=== PATIENT | female | born 1990 | race Caucasian/White ===

== ENCOUNTER 2024-02-12 11:07 | Emergency (ER) | payer BC, SELFPAY ==
--- NOTE | 2024-02-12 11:11 | ED_ITS ---
HPI - URI/Sore Throat General Chief Complaint: Upper Respiratory Infection Stated Complaint: sore throat,ear pain, weak Time Seen by Provider: 02/12/24 11:49 Source: patient and RN notes reviewed Mode of arrival: ambulatory Limitations: no limitations History of Present Illness HPI Narrative: 34-year-old female presents to the [facility] with complaints of sore throat, ear pain, cough, fatigue and head congestion that started 3 days ago No treatment prior to arrival. 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 Related Data Allergies Allergy/AdvReac Type Severity Reaction Status Date / Time No Known Allergies Allergy Verified 02/12/24 12:10 Review of Systems Review of Systems: All systems reviewed & are unremarkable except as noted in HPI and below Constitutional: Constitutional: Reports no additional constitutional complaints ENT: Reports as per HPI Cardiovascular: Cardiovascular: Reports no additional cardiovascular complaints, Denies chest pain and Denies dyspnea Respiratory: Respiratory: Reports as per HPI, Denies chest congestion, Reports cough and Denies dyspnea Musculoskeletal: Musculoskeletal: Reports no additional musculoskeletal complaints Integumentary/Breasts: Skin/Breast: Reports system reviewed and no additional complaints, except as docu PMFSH Comments At the time of my signature, I reviewed and agree with the nursing past medical, surgical, social, and family history. There is no relevant family history pertinent to the patient complaint. Exam Const: General: cooperative, healthy appearing, comfortable, no acute distress, well developed, alert and well nourished Nutritional Appearance: well nourished Orientation/consciousness: patient oriented x3 Limitations: no limitations HENMT: Head: normal to inspection Ears: hearing grossly normal bilaterally, external ears normal, EAC's normal, mastoids normal, no periauricular adenopathy and TM abnormal erythematous on the left and with fluid behind the TM on the right; not bulging Mouth: Yes Normal oral and palatal mucosa present, Yes lip normal, Yes tongue normal and Yes moist mucous membranes Throat: posterior oropharynx normal, tonsils normal, uvula midline, postnasal drainage and no uvular edema Eyes: General: appearance normal, both eyes and all related structures Alignment and Position: alignment normal Neck: Neck: normal visual inspection, full ROM, no lymphadenopathy and no meningeal signs Chest: Chest palpation & inspection: normal inspection of the chest Resp: Effort & Inspection: normal respiratory effort and able to speak in complete sentences Auscultation: clear to auscultation bilaterally, no crackles, no rales, no rhonchi and no wheezes Cardio: Rate: regular rate Skin: General skin exam: normal color and no rashes or lesions noted Neuro: General: patient oriented x3, gait normal, moves all extremities and no meningeal signs Cognition (Neuro): normal cognition Speech: normal speech Gait exam (Neuro): Normal gait present Extrem: General: normal to inspection, full ROM, capillary refill normal and normal gait Psych: Appearance: grossly normal and well kempt Mental Status: mental status grossly normal Speech and movement: Normal speech and movement present and Clear speech present Affect: normal affect Attitude: cooperative Course Course Level of Care: Express Care Visit Vital Signs Vital signs: Vital Signs Temperature 98.2 F 02/12/24 11:30 Pulse Rate 78 02/12/24 11:30 Respiratory Rate 16 02/12/24 11:30 Blood Pressure 105/69 02/12/24 11:30 Pulse Oximetry 100 02/12/24 11:30 Oxygen Delivery Room Air 02/12/24 11:30 Temperature 98.2 F 02/12/24 11:30 Pulse Rate 78 02/12/24 11:30 Respiratory Rate 16 02/12/24 11:30 Blood Pressure 105/69 02/12/24 11:30 Pulse Oximetry 100 02/12/24 11:30 Oxygen Delivery Room Air 02/12/24 11:30 Reviewed MDM - URI/Sore Throat MDM Narrative Medical decision making narrative: For patient sitting comfortably in exam room. Nontoxic, vitals stable. Patient presents with 3 day history of URI symptoms. Erythema noted to left TM. Flu, COVID, strep were all negative in clinic. Patient appropriate for outpatient treatment and follow-up Discharge instructions reviewed with patient, as well as provided in writing per nursing staff. The instructions also include specific and strict return/GO TO THE ER as well as f/u information. All questions have been answered, and the patient deny any further questions with discharge and discharge plan. Some parts of this dictation were generated by voice recognition software and may contain typographical and/or grammatical inaccuracies. Differential Diagnosis Differential diagnosis: Likely upper respiratory infection, otitis media, sinusitis, viral infection, bronchitis, influenza and pharyngitis Lab Data Labs: Lab Results 02/12/24 Range/Units 11:35 POC Influenza A Ag Negative (Negative) POC Influenza B Ag Negative (Negative) POC SARS CoV-2 Ag Negative (Negative) POC Grp A Strep Screen Negative (Negative) Reviewed Critical Care Time Critical Care Time Critical Care Time: No Discharge Plan Discharge Clinical Impression: Acute left otitis media, PND (post-nasal drip) Patient Disposition: Home, Self-Care Condition: Stable Instructions: Antibiotic Form, Ear Infection (GEN) Additional Instructions: Your rapid strep swab was negative today at [facility]. A throat culture will be sent to the laboratory for further testing. If the test is positive, you will receive a phone call within 48 hours and an appropriate antibiotic will be initiated at that time. Your rapid COVID test were negative Your rapid flu test was negative Your exam showed a left ear infection. You are prescribed be sure take antibiotic for the full 10 days. While in antibiotics it is recommended that you eat a you over a day and/ or take a probiotic It is very important to treat your symptoms. Drink plenty of water, Gatorade, Pedialyte, ice pops or Jell-O. Check with your car unloader helper provider for medications that are safe with -Alternate Tylenol and Motrin per package directions for fever or pain. You can alternate every 4 hours -Antihistamine medication such as Zyrtec/Claritin/Ama during the day can help improve symptoms. -doing daily nasal irrigations can help relieve pressure your sinuses. Things like a Neti pot -Use Flonase daily to help reduce the inflammation and dry up your sinuses. -You can also use Mucinex. Be sure to drink plenty of water with this medication at least 8 ounces with every dose and it is important to drink 8 to 10 glasses of water per day. Water is a natural decongestant -Eat and drink things that are easy to swallow, like tea or soup, or popsicles. -Oral rinses such as: Salt water gargles and/or may use topical anesthetic (eg. Chloraseptic spray) or lozenges to relieve dryness or throat pain). -Frequent hand washing or hand business applications manager is one of the best ways to prevent spread of infection. -Using a vaporizer or humidifier at night will also help thin secretions and help with coughing up phlegm. -Follow up with primary care provider in 7-10 days if condition is not improving - For new or worsening symptoms go directly to the nearest ER Patient Language: Tajik Prescriptions: New amoxicillin 875 mg tablet 875 mg PO Q12H Qty: 20 0RF Follow-up/Referrals: PHYSICIAN,RN STAFF [Primary Care Provider] - Stand Alone Forms: Work/School Release IP Time of Disposition: 12:08
[2024-02-12 11:30] VITALS: BP 105/69; PULSE 78; RESP 16; TEMP 36.8; O2SAT 100
[2024-02-12 12:03] LABS: EDCOVIDSCREEN Negative (Negative); EDINFLUASCREEN Negative (Negative); EDINFLUBSCREEN Negative (Negative); EDSTREPNEGPOS1 Negative (Negative)
== END 2024-02-12 12:15 | disposition home or self-care (01) ==
PROVIDERS: Emergency Provider Nurse Practitioner
DX: H66.92 Otitis media, unspecified, left ear (principal); R09.82 Postnasal drip; Z20.822 Contact with and (suspected) exposure to COVID-19
CPT/HCPCS: 87081; 87426; 87804; 87880; 99213; G0463

== ENCOUNTER 2024-10-28 20:59 | Emergency (ER) | payer BC, SELFPAY ==
--- NOTE | ~2024-10-28 | XR_ITS ---
Examination: XR chest 2V Clinical History: chest pressure Comparison: None Technique: PA and Lateral Findings: Cardiomediastinal silhouette normal size and configuration. Lungs clear. No acute bony abnormality. IMPRESSION: 1. No acute cardiopulmonary findings. Reviewed, dictated and finalized at location R.
--- OUTSIDE RECORDS SUMMARY | 2024-10-28 21:02 | XMS_ITS | Encounter Summary ---
Author Organization [facility] Address [address] [place] [address] Care Team Providers Care Cell Repairer Name Role Phone Ally Barajas PA-C Primary Care Provider [phone]- [phone] Ramsey Mccann STAFF DEVELOPMENT MANAGER Unavailable [phone] Encounter Details Date Type Department Care Team (Late st Contact Info) Description 09/01/2021 [employer] Message [facility] [address] [place] [id number] Ally Barajas PA-C [address] [place] [address] Question regarding CULTURE URINE Social History Tobacco Use Types Packs/Day Years Used Date Smoking Tobacco: Every Day Cigarettes 1 10 Smokeless Tobacco: Never Comments:Discussed risks of smoking and benefits of cessation, recommended she quit. Alcohol Use Standard Drinks/Week Comments Yes 0 (1 standard drink = 0.6 oz pur e alcohol) weekly/socially AUDIT-C Answer Date Recorded Q1: How often do you have a drink containing alc ohol? 2-4 times a month 08/28/2019 Average Number of Drinks Not on file 020 Q3: How often do you have si x or more drinks on one occasion? Never 08/28/2019 PHQ-2 Answer Date Recorded PHQ-2 Score - If the patient scores above 3, please move on to questions 3-9 1 08/30/2021 Education Answer Date Recorded What is the highest level of school you have completed or the highest degree you have received? Master's degree (e.g., MA, MS, [employer], MEd, ACADEMIC COORDINATOR, RODRIGO) 01/03/2021 Comments No Sex and Gender Information Value Date Recorded Sex Assigned at Female 03/20/2024 1:48 PM PUBLIC RELATIONS Legal Sex Female 8:31 PM CDT Gender Identity Not on file Sexual Orientation Not on file Occupation Industry Job Start Date Job End Date Not on file Not on file Not on file Not on file COVID-19 Exposure Response Date Recorded In the last 10 days, have yo u been in contact with someone who was confirmed or suspected to have Coronavirus/COVID-19? No / Unsure 08/30/2021 7:15 AM CDT documented as of this encounter Plan of Treatment Not on file documented as of this encounter Visit Diagnoses Not on filedocumented in this encounter Additional Health Concerns Infection Onset Date Last Indicated Resolved Time COVID-19 Rule Out 04/25/2022 04/25/2022 04/25/2022 8:18 AM CDT Assessment Noted Time PHQ-9 Depression Total Score: 4 08/23/19 22 2:23 PM CDT documented as of this encounter Care Teams Cell Repairer Relationship Specialty Start Date End Date Ally Barajas PA-C [address] [place] [address] PCP - General PHYSICIAN STUD DAIRY CATTLE FARMER 05/06/19 Ramsey Mccann, STAFF DEVELOPMENT MANAGER [address] [facility] [address] [place] [address] Nurse Practitioner Women's Health 08/30/21 documented as of this encounter
--- OUTSIDE RECORDS SUMMARY | 2024-10-28 21:02 | XMS_ITS | Encounter Summary ---
Author Organization [facility] Address [facility] [place] [address] Care Team Providers Care Medical Office Secretary Name Role Phone Ally Barajas PA-C Primary Care Provider [phone] Ramsey Mccann PUBLICATIONS INSPECTOR Unavailable Encounter Details Date Type Department Care Team (Late st Contact Info) Description 05/15/2022 [employer] [facility] Patient Accounts [address] [place] [address] [facility] Provider Monthly Credit Card Payment Social History Tobacco Use Types Packs/Day Years Used Date Smoking Tobacco: Former Cigarettes 1 10 Smokeless Tobacco: Never Comments:Discussed [...] occasion? Never 08/28/2019 PHQ-2 Answer Date Recorded Patient Health Questionnaire-2 Score 0 04/25/2022 Education Answer Date Recorded What is the highest level of school you have completed or the highest degree you have received? Master's degree (e.g., MA, MS, [employer], MEd, DIRECTOR DATA, RODRIGO) 01/03/2021 Comments Yes Sex and Gender Information Value Date Recorded Sex Assigned at Female 03/20/2024 1:48 PM REMELT WORKER Legal Sex Female 8:31 PM CDT Gender Identity Not on file Sexual Orientation Not on file Occupation Industry Job Start Date Job End Date Not on file Not on file Not on file Not on file COVID-19 Exposure Response Date Recorded In the last 10 days, have deandre pepper been in contact with someone who was confirmed or suspected to have Coronavirus/COVID-19? No / Unsure 04/25/2022 7:26 AM CDT documented as of this encounter Plan of Treatment Not on file documented as of this encounter Visit Diagnoses Not on filedocumented in this encounter Additional Health Concerns Assessment Noted Time PHQ-9 Depression Total Score: 4 08/23/19 22 2:23 PM CDT documented as of this encounter Care Teams Medical Office Secretary Relationship Specialty Start Date End Date Ally Barajas PA-C [address] [place] [address] PCP - General PHYSICIAN ENVIRONMENTAL ENGINEER SCIENTIST 05/06/19 Ramsey Mccann, PUBLICATIONS INSPECTOR [address] [facility] [address] [place] [address] Nurse Practitioner Women's Health 08/30/21 documented as of this encounter
--- OUTSIDE RECORDS SUMMARY | 2024-10-28 21:02 | XMS_ITS | Encounter Summary ---
Author Organization [facility] Address [address] [place] [address] Care Team Providers Care Perpetual Inventory Clerk Name Role Phone Ally Braajas PA-C Primary Care Provider [phone]- [phone] Ramsey Mccann RN OFFICE Unavailable [phone] Encounter Details Date Type Department Care Team (Late st Contact Info) Description 09/19/2021 [employer] Message [facility] [address] [place] [id number] Ally Barajas PA-C [address] [place] [address] STD Social History Tobacco Use Types Packs/Day Years [...] Master's degree (e.g., MA, MS, [employer], MEd, KEG FILLER, RODRIGO) 01/03/2021 Comments No Sex and Gender Information Value Date Recorded Sex Assigned at Female 03/20/2024 1:48 PM WINE STEWARD Legal Sex Female 8:31 PM CDT Gender [...] suspected to have Coronavirus/COVID-19? No / Unsure 09/22/2021 10:57 AM CDT documented as of this encounter [...] documented as of this encounter Care Teams Perpetual Inventory Clerk Relationship Specialty Start Date End Date Ally Barajas PA-C [address] [facility] [address] [place] [address] PCP - General PHYSICIAN PHOTOLETTERING MACHINE OPERATOR 05/06/19 Ramsey Mccann, RN OFFICE [address] [facility] [address] [place] [address] Nurse Practitioner Women's Health 08/30/21 documented as of this encounter
--- OUTSIDE RECORDS SUMMARY | 2024-10-28 21:02 | XMS_ITS | Encounter Summary ---
Author Organization [facility] Address [address] [place] [address] Care Team Providers Care Emulsification Operator Name Role Phone Ally Barajas PA-C Primary Care Provider [phone]- [phone] Ramsey Mccann ALARM OPERATOR Unavailable [phone] Encounter Details Date Type Department Care Team (Late st Contact Info) Description 09/28/2021 [employer] Message [facility] [address] [place] [phone] Ally Barajas PA-C [address] [place] [address] Question regarding HERPES SIMPLEX VIRUS IGG Social History Tobacco Use Types Packs/Day Years [...] Master's degree (e.g., MA, MS, [employer], MEd, SULFONATOR OPERATOR, RODRIGO) 01/03/2021 Comments No Sex and Gender Information Value Date Recorded Sex Assigned at Female 03/20/2024 1:48 PM HARP ACTION ASSEMBLER Legal Sex Female 8:31 PM CDT Gender Identity Not on file Sexual Orientation Not on file Occupation Industry Job Start Date Job End Date Not on file Not on file Not on file Not on file COVID-19 Exposure Response Date Recorded In the last 10 days, have deandre u been in contact with someone who [...] documented as of this encounter Care Teams Emulsification Operator Relationship Specialty Start Date End Date Ally Braajas, PAAxelC [address] [facility] [address] [place] [address] PCP - General PHYSICIAN MAINTENANCE SERVICE DISPATCHER 05/06/19 Ramsey Mccann, ALARM OPERATOR [address] [facility] [address] [place] [address] Nurse Practitioner Women's Health 08/30/21 documented as of this encounter
--- OUTSIDE RECORDS SUMMARY | 2024-10-28 21:02 | XMS_ITS | Encounter Summary ---
Author Organization [facility] Address [facility] [place] [address] Care Team Providers Care Gold Beater Name Role Phone Ally Barajas PA-C Primary Care Provider [phone]- [phone] Ramsey Mccann STACKER OPERATOR Unavailable [phone] Encounter Details Date Type Department Care Team (Late st Contact Info) Description 05/15/[address] [employer] [address] [facility] Patient Accounts [address] [place] [address] [facility] Provider Correction to Declined Credit Card message Social History Tobacco Use Types Packs/Day Years [...] Master's degree (e.g., MA, MS, [employer], MEd, PHYSICAL AERODYNAMICIST, RODRIGO) 01/03/2021 Comments Yes Sex and Gender Information Value Date Recorded Sex Assigned at Female 03/20/2024 1:48 PM SEWAGE TREATMENT PLANT OPERATOR Legal Sex Female 8:31 PM CDT Gender [...] documented as of this encounter Care Teams Gold Beater Relationship Specialty Start Date End Date Ally Barajas PA-C [address] [facility] [address] [place] [address] PCP - General PHYSICIAN SERVICE CONTROL OPERATOR 05/06/19 Ramsey Mccann, STACKER OPERATOR [address] [facility] [address] [place] [address] Nurse Practitioner Women's Health 08/30/21 documented as of this encounter
--- OUTSIDE RECORDS SUMMARY | 2024-10-28 21:02 | XMS_ITS | Encounter Summary ---
Author Organization [facility] Address [address] [place] [address] Care Team Providers Care Mine Safety Manager Name Role Phone Ally Barajas PA-C Primary Care Provider [phone]- [phone] Ramsey Mccann HOT FRAME TENDER Unavailable [phone] Encounter Details Date Type Department Care Team (Late st Contact Info) Description 06/29/2020 Prep for Procedure [facility] [address] [place] [address] Nell Winter DO [address] [place] [address] Social History Tobacco Use Types Packs/Day Years Used Date Smoking Tobacco: Former Cigarettes 0.3 10 Smokeless Tobacco: Never Comments:restarted Alcohol Use Standard Drinks/Week Comments Yes 0 [...] 3, please move on to questions 3-9 3 08/28/2019 Comments No Sex and Gender Information Value Date Recorded Sex Assigned at Female 03/20/2024 1:48 PM SWEEP PRESS OPERATOR Legal Sex Female 8:31 PM CDT Gender Identity Not on file Sexual Orientation Not on file COVID-19 Exposure Response Date Recorded In the last month, have you been in contact with someone who was confirmed or suspected to have Coronavirus / COVID-19? No / Unsure 06/29/2020 10:39 AM CDT documented as of this encounter Plan of Treatment Not on file documented as of this encounter Results * PRE-SURGICAL/PRE-PROCEDURE CORONAVIRUS (COVID 19) (07/03/2020 8:47 AM CDT) CORONAVIRUS SARS COV 2 PCR (RESP) NOT DETECTED NOT DETECTED 07/04/2020 1:01 PM CDT [facility] Comment: A Not Detected (negative) test result for this test means that SARS- CoV-2 RNA was not present in the specimen above the limit of detection. A negative result does not rule out the possibility of COVID-19 and should not be used as the sole basis for treatment or patient management decisions. If COVID-19 is still suspected, based on exposure history together with other clinical findings, re-testing should be considered in consultation with public health authorities. Laboratory test results should always be considered in the context of clinical observations and epidemiological data in making a final diagnosis and patient management decisions. Please review the Fact Sheets and FDA authorized labeling available for health care providers and patients using the following websites: https://[email or web address]/home/Covid-19/HCP/Quest[employer]D/fact- sheet.html https://www.[email or web address]/home/Covid-19/Patients/ QuestIVD/fact-sheet.html This test has been authorized by the FDA under an Emergency Use Authorization (EUA) for use by authorized laboratories. Due to the current public health emergency, [facility] is receiving a high volume of samples from a wide variety of swabs and media for COVID-19 testing. In order to serve patients during this public health crisis, samples from appropriate clinical sources are being tested. Negative test results derived from specimens received in non-commercially manufactured viral collection and transport media, or in media and sample collection kits not yet authorized by FDA for COVID-19 testing should be cautiously evaluated and the patient potentially subjected to extra precautions such as additional clinical monitoring, including collection of an additional specimen. Methodology: Nucleic Acid Amplification Test (NAAT) includes RT-PCR or TMA Additional information about COVID-19 can be found at the [facility] [facility] website: [email or web address]/Covid19. Test performed at [facility] [employer] [address] [id number] Director: DEQUAN HOOKS DO,MPH FIRST TEST YES 07/03/2020 8:48 AM CDT [facility] EMPLOYED IN HEALTHCARE NO 07/03/2020 8:48 AM CDT [facility] SYMPTOMATIC DEFINED BY CDC NO 07/03/2020 8:48 AM CDT [facility] DATE OF SYMPTOM ONSET UNKNOWN 07/03/2020 8:54 AM CDT [facility] HOSPITALIZATION STATUS NO 07/03/2020 8:48 AM CDT [facility] PATIENT IN ICU NO 07/03/2020 8:48 AM CDT [facility] RESIDENT OF [facility] NO 07/03/2020 8:48 AM CDT [facility] NOT 07/03/2020 8:48 AM CDT [facility] PATIENT'S RACE WHITE OR 07/03/2020 8:48 AM CDT [facility] ETHNICITY NONHISPANIC 07/03/2020 8:48 AM CDT [facility] SOURCE (QST) NASOPHARYNGEAL SWAB 07/03/2020 8:48 AM CDT [facility] NASOPHARYNGEAL SWAB / Unknown 07/03/2020 8:47 AM CDT us Nell Crystalch DO MICROBIOLOGY - GENERAL ORDE RABLES Final Result [facility] [address] [place] [address], [facility] [facility] [address] [place] [address], documented in this encounter Visit Diagnoses Diagnosis Preop testing- Primary Preoperative examination, unspecified documented in this encounter Additional Health Concerns Infection Onset Date Last Indicated Resolved Time COVID-19 Rule Out 07/03/2020 07/03/2020 07/04/2020 1:01 PM CDT COVID-19 Rule Out 04/25/2022 04/25/2022 04/25/2022 8:18 AM CDT Assessment Noted Time PHQ-9 Depression Total Score: 14 020 3:12 PM CDT documented as of this encounter Care Teams Mine Safety Manager Relationship Specialty Start Date End Date Ally Barajas PA-C [address] [facility] [address] [place] [address] PCP - General PHYSICIAN SUPERVISOR OF COMMUNICATIONS 05/06/19 Ramsey Mccann, HOT FRAME TENDER [address] [facility] [address] [place] [address] Nurse Practitioner Women's Health 08/30/21 documented as of this encounter
--- OUTSIDE RECORDS SUMMARY | 2024-10-28 21:02 | XMS_ITS | Encounter Summary ---
Author Organization [facility] Address [address] [place] [address] Care Team Providers Care Picture Engraver Name Role Phone Ally Barajas PA-C Primary Care Provider [phone]- [phone] Ramsey Mccann LIDAR SCIENTIST Unavailable [phone] Encounter Details Date Type Department Care Team (Late st Contact Info) Description 08/28/2021 Smart Wire Grid Message [facility] [address] [place] [id number] Ally Barajas PA-C [address] [place] [address] Injection Shot Reaction Social History Tobacco Use Types Packs/Day Years [...] Master's degree (e.g., MA, MS, Monster, MEd, OFFICE 365 CONSULTANT, RODRIGO) 01/03/2021 Comments No Sex and Gender Information Value Date Recorded Sex Assigned at Female 03/20/2024 1:48 PM SAW HANDLE ASSEMBLER Legal Sex Female 8:31 PM CDT [...] AM CDT documented as of this encounter Progress Notes * Marielos Reid RN - 08/28/2021 10:40 AM CDT Appt to see Randi Zee tomorrow 08/29/2021 @ 4:40PM per patient request. MARIELOS REID RN 08/28/2021 * Marcel Allred DO - 08/28/2021 10:08 AM CDT None, my apologies I was reviewing a previous encounter where she had pelvic complaints. I recommend she get evaluated in office this week, fine to wait until Ally returns * Marcel Allred DO - 08/28/2021 9:23 AM CDT I doubt this is a side effect from the Rocephin given it has been several months since the Rocephin. However, it is possible she has PID from prior infection or could be her anxiety as at her last visit on 08/22/21. I would recommend she follow up with appointment with Ally to discus this. I do notthink it is anything life threatening that would require immediate evaluation documented in this encounter Plan of Treatment Not on file documented as of this encounter Visit Diagnoses Not on filedocumented in this encounter Additional Health Concerns Infection Onset Date Last Indicated Resolved Time COVID-19 Rule Out 04/25/2022 04/25/2022 04/25/2022 8:18 AM CDT Assessment Noted Time PHQ-9 Depression Total Score: 4 08/23/19 2:23 PM CDT documented as of this encounter Care Teams Picture Engraver Relationship Specialty Start Date End Date Ally Barajas PA-C [address] [place] [address] PCP - General PHYSICIAN CUSTODIAL FOREMAN 05/06/19 Ramsey Mccann, LIDAR SCIENTIST [address] [place] [address] Nurse Practitioner Women's Health 08/30/21 documented as of this encounter
--- OUTSIDE RECORDS SUMMARY | 2024-10-28 21:02 | XMS_ITS | Encounter Summary ---
Author Organization [facility] Address [address] [place] [address] Care Team Providers Care Contact Lens Assistant Name Role Phone Ally Barajas PA-C Primary Care Provider [phone]- [phone] Ramsey Mccann TOE SEWER Unavailable [phone] Encounter Details Date Type Department Care Team (Late st Contact Info) Description 06/19/2021 [employer] Message [facility] [address] [place] [phone] Ally Barajas PA-C [address] [place] [address] Ear Infection Social History Tobacco Use Types Packs/Day Years [...] 3, please move on to questions 3-9 0 06/22/2021 Education Answer Date Recorded What is the highest level of school you have completed or the highest degree you have received? Master's degree (e.g., MA, MS, Monster, MEd, SAMPLE SEWER, RODRIGO) 01/03/2021 Comments No Sex and Gender Information Value Date Recorded Sex Assigned at Female 03/20/2024 1:48 PM PAINTER AND BODY MECHANIC APPRENTICE Legal Sex Female 8:31 PM CDT Gender [...] suspected to have Coronavirus/COVID-19? No / Unsure 06/21/2021 7:48 PM CDT documented as of this encounter Plan of Treatment Not on file documented as of this encounter Visit Diagnoses Not on filedocumented in this encounter Additional Health Concerns Infection Onset Date Last Indicated Resolved Time COVID-19 Rule Out 04/25/2022 04/25/2022 04/25/2022 8:18 AM CDT Assessment Noted Time PHQ-9 Depression Total Score: 9 06/10/19 22 3:46 PM CDT documented as of this encounter Care Teams Contact Lens Assistant Relationship Specialty Start Date End Date Ally Barajas PA-C [address] [facility] [address] [place] [address] PCP - General PHYSICIAN GIFT PACKER 05/06/19 Ramsey Mccann, TOE SEWER [address] [facility] [address] [place] [address] Nurse Practitioner Women's Health 08/30/21 documented as of this encounter
--- OUTSIDE RECORDS SUMMARY | 2024-10-28 21:02 | XMS_ITS | Encounter Summary ---
Author Organization [facility] Address [address] [place] [address] Care Team Providers Care Artificial Snow Making Machine Operator Name Role Phone Ally Barajas PA-C Primary Care Provider [phone]- [phone] Ramsey Mccann MOTOR LODGE CLERK Unavailable [phone] Encounter Details Date Type Department Care Team (Late st Contact Info) Description 09/06/[address] [facility] [address] [place] [address] Ally Barajas PA-C [address] [place] [address] Question regarding AI SCRN W RFX/TITER/PATTERN/CA SCADE Social History Tobacco Use Types Packs/Day Years [...] Master's degree (e.g., MA, MS, Monster, MEd, PACKAGE MAKER, RODRIGO) 01/03/2021 Comments No Sex and Gender Information Value Date Recorded Sex Assigned at Female 03/20/2024 1:48 PM PRACTICE ASSISTANT Legal Sex Female 8:31 PM CDT Gender [...] documented as of this encounter Care Teams Artificial Snow Making Machine Operator Relationship Specialty Start Date End Date Ally Barajas PA-C [address] [facility] [address] [place] [address] PCP - General PHYSICIAN RFID SYSTEMS ARCHITECT 05/06/19 Ramsey Mccann, MOTOR LODGE CLERK [address] [facility] [address] [place] [address] Nurse Practitioner Women's Health 08/30/21 documented as of this encounter
--- OUTSIDE RECORDS SUMMARY | 2024-10-28 21:02 | XMS_ITS | Clinical Summary ---
Author Organization [facility] Address [address] [place] [address] Care Team Providers Care Cosmetology Educator Name Role Phone Ally Barcenas PA-C Primary Care Provider [phone]- [phone] Ramsey Mccann HEAVY EQUIPMENT SERVICE MANAGER Unavailable [phone] Allergies Active Allergy Reactions Criticality Noted Date Comments Doxycycline Myalgias 09/06/2021 And arthralgias, weakly elevated histone ab and dsdna ab. Medications Vit-Fe Fumarate-FA ( 1+1 OR) daily. Active levonorgestrel (MIRENA, 52 MG,) 20 MCG/DAY IUD 1 Intra Uterine Device by Intrauterine route once. 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 Overview (09/25/2021): pos antibody screen Sacroiliitis 01/03/2021 Generalized anxiety disorder 10/07/2020 Pelvic pain 07/06/2020 Perineal neuralgia Resolved Problems Problem Noted Date Diagnosed Date Resolved Date No known health problems 11/16/201312/2019 Immunizations Immunization Administration Dates Next Due Dtap 05/29/1996 Dtap (Generic) 10/02/1994, 4,03/16/1993,1992 Hepatitis B 03/16/1993,1992,1992 Hib 10/02/1993,03/16/1993,1992 Influenza (Generic) 11/23/2020 Influenza Adult (Generic) 11/29/2021,03/21/2019 MMR 05/29/1996,10/02/1993 MODERNA COVID-19 (12+) MRNA, LNP-S, PF, 100 MCG/ 0.5 ML DOSE 05/06/2020,04/08/2020 Opv 05/29/1996, 4,03/16/1993,1992 Tdap (Adacel) 10/13/2021,01/31/2012 Tdap (Generic) 1992 Varicella Vaccine 10/03/2006,10/05/2002 Family History Medical History Relation Comments No Known Problems Father leukemia Maternal Aunt tachycardia Maternal Aunt Prostate Cancer Maternal Grandfather aplastic anemia Maternal Grandfather bladder cancer Maternal Grandfather Cancer Maternal Grandmother melanoma Maternal Grandmother No Known Problems Mother Diabetes Paternal Grandfather Mental Health Sister Relation Status Comments Father Alive Maternal Aunt Maternal Grandfather Maternal Grandmother Mother Alive Paternal Grandfather Alive Paternal Grandmother Alive Sister Alive Social History Tobacco Use Types Packs/Day Years Used Date Smoking Tobacco: Former Cigarettes 1 10 Smokeless Tobacco: Never Tobacco Cessation:Counseling Given: No Comments:Discussed risks of smoking and benefits of [...] Master's degree (e.g., MA, MS, Monster, MEd, PROOFER, RODRIGO) 01/03/2021 Comments No Sex and Gender Information Value Date Recorded Sex Assigned at Female 03/20/2024 1:48 PM CLOTHING SUPERVISOR Legal Sex Female 8:31 PM CDT Gender Identity Not on file Sexual Orientation Not on file Occupation Industry Job Start Date Job End Date Not on file Not on file Not on file Not on file Last Filed Vital Signs Vital Sign Reading Time Taken Comments Blood Pressure 105/68 03/20/2024 1:57 PM CLOTHING SUPERVISOR Pulse 75 03/20/2024 1:57 PM CLOTHING SUPERVISOR Temperature 37.3 C (99.1 F) 03/20/2024 1:57 PM CLOTHING SUPERVISOR Respiratory Rate 18 03/20/2024 1:57 PM CLOTHING SUPERVISOR Oxygen Saturation 100% 03/20/2024 1:57 PM CLOTHING SUPERVISOR Inhaled Oxygen Concentration - - Weight 61.7 kg (136 lb 2 oz) 03/20/2024 1:57 PM CLOTHING SUPERVISOR Height 157.5 cm (5' 2) 03/20/2024 1:57 PM CLOTHING SUPERVISOR Body Mass Index 24.9 03/20/2024 1:57 PM CLOTHING SUPERVISOR Plan of Treatment Health Maintenance Due Date Last Done Comments HPV Vaccines (1 - 3-dose SCDM series) 01/26/2019 Annual Physical 06/09/2022 06/09/2021 PHQ-2 (Physician [place]) 02/12/2024 COVID-19 Vaccine ( season) 2024 11/29/2021, 05/06/2020, 04/08/2020 Cervical Cancer Screening Pap with HPV Testing (Age 30 to 64) Every 5 Years 03/30/2025 03/30/2024, 09/24/2023, 05/28/2023, Additional history exists Cervical Cancer Screening with HPV 03/30/2025 Cervical Cancer Screening Pap Smear (Age 30 to 64) Every 3 Years 09/23/2026 09/24/2023, 05/28/2023, 02/14/2022, Additional history exists DTaP, Tdap and Td Vaccines (8 - Td or Tdap) 10/14/2031 10/13/2021, 01/31/2012, 05/29/1996, Additional history exists Hepatitis B Vaccines Completed 03/16/1993, 1992, 1992 Hepatitis C Completed 03/01/2022, 03/01/2022 Meningococcal B Vaccine Aged Out No l onger eligible based on patient's age to complete this topic Meningococcal Vaccine Aged Out No virginia chaparro eligible based on patient's age to complete this topic Pneumococcal Vaccine: Pediatrics (0 to 5 Years) and At-Risk Patients (6 to 49 Years) Aged Out No longer eligible based on patient's age to complete this topic RSV Immunizations Under 20 Months Aged Out No longer eligible based on patient's age to complete this topic Procedures Procedure Name Priority Date/Time Associated Diagnosis Comments OUTSIDE CYTOPATH CERV/VAG INTERPRET (PAP) 03/30/2024 CYTOPATH CERV/VAG THIN LAYER Routine 06/09/2021 12:00 AM CDT Encounter for well woman exam with routine gynecological exam from Last 3 Months or Most Recently Relevant to Health Maintenance Results * PAP SMEAR WITH HPV (03/30/2024) 03/30/2024 [facility] Scanned SCANNING Final Resu lt * Cytopath Cerv/Vag Thin Layer (06/09/2021 12:00 AM CDT) COPATH REPORT [place] [phone] Department of Pathology Pathology Report Addendum Gynecological Cytology Report Patient Name: BRONSON RODRIGUEZ : 1990 (Age: 31) Location: [facility] Gender: F Collected Date: 06/09/2021 Med Rec #: [id number] Date Received: 06/12/2021 Date Reported: /10/2021 Provider: ALLY BARCENAS PA-C Final Cytologic Diagnosis ABNORMAL RESULT Satisfactory for evaluation. Endocervical component present. ATYPICAL SQUAMOUS CELLS - UNDETERMINED SIGNIFICANCE (ASC-US) Bacterial Vaginosis Moderate Inflammation Present This case was signed out at [facility], [address] [place] [address]. Electronically Signed Out SEGUN Bean Procedures/Adden da Addendum Date Ordered: 06/19/2021 Status: Signed Out Date Complete: 06/19/2021 Date Reported: 06/19/2021 Addendum Diagnosis High-risk HPV mRNA E6/E7 by Aptima assay (performed at [facility] is reported as DETECTED (see separate report for details) Reflex Genotyping for HPV 16 and 18/45 by Aptima assay (performed at [facility] is reported as NOT DETECTED (see separate report for details) Source of Specimen(s) Cervical/Endocer vical - Thin Prep Clinical History Screening, last Pap not provided. Z01.419 Date of Last Menstrual Period: 05/23/2021 Billing Fee Code(s): A: [address]62[address] [facility] 06/09/2021 06/12/2021 6:5 3 AM CDT Comment:Cervical/Endocervica l - Thin Prep Ally Barcenas PA-C PATHOLOGY/CYTOLOGY ORDERAB LES Final Result [facility] [address] [place] [address], [place] [phone] from Last 3 Months or Most Recently Relevant to Health Maintenance Insurance [facility] Advance Directives * Full Code (Latest Code Status on File) Date Activated Date Inactivated Comments 07/06/2020 2:15 PM 07/06/2020 5:37 PM Care Teams Cosmetology Educator Relationship Specialty Start Date End Date Ally Barcenas PA-C [address] [facility] [address] [place] [address] PCP - General PHYSICIAN APPLICATION DBA 05/06/19 Ramsey Mccann, HEAVY EQUIPMENT SERVICE MANAGER [address] [facility] [address] [place], [place] [id number] Nurse Practitioner Women's Health 08/30/21
--- OUTSIDE RECORDS SUMMARY | 2024-10-28 21:02 | XMS_ITS | Encounter Summary ---
Author Organization [facility] Address [address] [place] [address] Care Team Providers Care Carbon Rod Inserter Name Role Phone Ally Barajas PA-C Primary Care Provider [phone]- [phone] Ramsey Mccann DOMESTIC VIOLENCE ADVOCATE Unavailable [phone] Encounter Details Date Type Department Care Team (Late st Contact Info) Description 08/21/2021 [employer] Message [facility] [address] [place] [phone] Ally Barajas PA-C [address] [place] [address] Medication for anxiety Social History Tobacco Use Types Packs/Day Years [...] please move on to questions 3-9 0 08/22/2021 Education Answer Date Recorded What is the highest level of school you have completed or the highest degree you have received? Master's degree (e.g., MA, MS, Monster, MEd, FREELANCE PHOTOGRAPHER, RODRIGO) 01/03/2021 Comments No Sex and Gender Information Value Date Recorded Sex Assigned at Female 03/20/2024 1:48 PM PRODUCT COMMUNICATIONS MANAGER Legal Sex Female 8:31 PM CDT Gender [...] suspected to have Coronavirus/COVID-19? No / Unsure 08/22/2021 2:14 PM CDT documented as of this encounter Functional Status * Calculated C-SSRS Risk Score (Lifetime/Recent) Answer Date of Assessment Author Status No Risk Indicated 08/22/2021 2:24 PM CDT [place] MA Active * [place] Suicide Severity Rating Scale (Screener/Recent Self-Report) Question Answer Date of Assessment Author Status 1. Wish to be (Past 1 Month) No 08/22/2021 2:24 PM CDT Nely West MA Act naty documented as of this encounter Progress Notes * Kristi Reid RN - 08/21/2021 2:30 PM CDT Appointment scheduled with Randi Zee on 08/22/2021 to discuss concerns. documented in this encounter Plan of Treatment Not on file documented as of this encounter Visit Diagnoses Not on filedocumented in this encounter Additional Health Concerns Infection Onset Date Last Indicated Resolved Time COVID-19 Rule Out 04/25/2022 04/25/2022 04/25/2022 8:18 AM CDT Assessment Noted Time PHQ-9 Depression Total Score: 9 06/10/19 22 3:46 PM CDT documented as of this encounter Care Teams Carbon Rod Inserter Relationship Specialty Start Date End Date Ally Barajas PA-C [address] [facility] [address] [place] [address] PCP - General PHYSICIAN ASSEMBLY LINE BRAZER 05/06/19 Ramsey Mccann, DOMESTIC VIOLENCE ADVOCATE [address] [address] Nurse Practitioner Women's Health 08/30/21 documented as of this encounter
--- OUTSIDE RECORDS SUMMARY | 2024-10-28 21:02 | XMS_ITS | Encounter Summary ---
Author Organization [facility] Address [address] [place] [address] Care Team Providers Care Computer Aided Design Technician Name Role Phone Ally Barajas PA-C Primary Care Provider [phone]- [phone] Ramsey Mccann DEVELOPMENT SPEC Unavailable [phone] Encounter Details Date Type Department Care Team (Late st Contact Info) Description 03/08/2020 [employer] Message [facility] [address] [phone] Ally Barajas PA-C [address] [place] [address] RE: Question Social History Tobacco Use Types Packs/Day Years Used Date Smoking Tobacco: Former Cigarettes 1 10 0 09/2008 - 09/2018 Smokeless Tobacco: Never Alcohol Use Standard Drinks/Week Comments Yes 0 (1 standard drink = 0.6 oz pur e alcohol) AUDIT-C Answer Date Recorded Q1: How often [...] Sex Assigned at Female 03/20/2024 1:48 PM NUTRITION PROGRAM INSTRUCTOR Legal Sex Female 8:31 PM CDT Gender Identity Not on file Sexual Orientation Not on file COVID-19 Exposure Response Date Recorded In the last month, have you been in contact with someone who was confirmed or suspected to have Coronavirus / COVID-19? No / Unsure 03/09/2020 6:28 AM NUTRITION PROGRAM INSTRUCTOR documented as of this encounter Progress Notes * Briana Alarcon RN - 03/08/2020 2:03 PM CST Lipid, TSH with reflex, and glucose was ordered in September 2019. Any other orders? ITION PROGRAM INSTRUCTOR documented in this encounter Plan of Treatment [...] documented as of this encounter Care Teams Computer Aided Design Technician Relationship Specialty Start Date End Date Ally Barajas PA-C [address] [facility] [address] [place] [address] PCP - General PHYSICIAN NEWSPAPER CARRIER 05/06/19 Ramsey Mccann, DEVELOPMENT SPEC [address] [facility] [address] [place] [address] Nurse Practitioner Women's Health 08/30/21 documented as of this encounter
--- OUTSIDE RECORDS SUMMARY | 2024-10-28 21:02 | XMS_ITS | Encounter Summary ---
Author Organization [facility] Address [address] [place] [address] Care Team Providers Care Stretcher Leveler Operator Name Role Phone Ally Barajas PA-C Primary Care Provider [phone]- [phone] Ramsey Mccann LAST CLEANER Unavailable [phone] Encounter Details Date Type Department Care Team (Late st Contact Info) Description 05/15/2023 [employer] Message [address] [phone] [facility] Provider Schedule Appointment - Annual Physical Social History Tobacco Use Types Packs/Day Years [...] Master's degree (e.g., MA, MS, Monster, MEd, COMMERCIAL GLAZIER, RODRIGO) 01/03/2021 Comments Yes Sex and Gender Information Value Date Recorded Sex Assigned at Female 03/20/2024 1:48 PM GEOTHERMAL POWERPLANT MECHANIC Legal Sex Female 8:31 PM CDT Gender Identity Not on file Sexual Orientation Not on file Occupation Industry Job Start Date Job End Date Not on file Not on file Not on file Not on file documented as of this encounter Plan of Treatment Not on file documented as of this encounter Visit Diagnoses Not on filedocumented in this encounter Additional Health Concerns Assessment Noted Time PHQ-9 Depression Total Score: 4 08/23/19 22 2:23 PM CDT documented as of this encounter Care Teams Stretcher Leveler Operator Relationship Specialty Start Date End Date Ally Barajas, DELORISC [address] [place] [address] PCP - General PHYSICIAN CRM MARKETING MANAGER 05/06/19 Ramsey Mccann, LAST CLEANER [address] [place] [address] Nurse Practitioner Women's Health 08/30/21 documented as of this encounter
[2024-10-28 21:05] VITALS: BP 123/78; PULSE 62; RESP 14; TEMP 36.5; O2SAT 100
[2024-10-28 21:12] VITALS: PULSE 63; O2SAT 100
--- NOTE | 2024-10-28 21:13 | ECG_ITS ---
Test Date: 2024-10-28 21:08:57 Measurements Intervals [place] Rate: 63 P: 79 NE: 139 QRS: 64 QRSD: 94 T: 35 QT: 370 QTc: 379 Interpretive Statements SINUS RHYTHM POSSIBLE LEFT ATRIAL ENLARGEMENT [-0.1mV P-WAVE IN V1/V2] NONSPECIFIC T-WAVE ABNORMALITY ABNORMAL ECG No previous ECG available for comparison Electronically Signed On 10-29-2024 07:57:41 CDT by Héctor David M.D.
[2024-10-28] MEDS: ASPIRIN 81 MG CHEWABLE TABLET 324 MG PO (21:25)
[2024-10-28 21:32] LABS: Hematocrit 36.9 % (37.0-47.0); Hemoglobin 12.2 g/dL (12.0-15.0); Immature Granulocyte Percent A 0.3 % (0-0.5); Lymphocytes Absolute Auto 2.35 K/mm3 (0.9-3.2); Mean Corpuscular HGB Conc 33.1 g/dl (32-36); Mean Corpuscular Hemoglobin 31.9 pg (26-34); Mean Corpuscular Volume 96.6 fl (80-100); Nucleated Red Blood Cells Absolute Auto 0.000 K/mm3 (0.0-0.012); Nucleated Red Blood Cells Perc 0.0 % (0.0-0.2); Platelet Count Result 222 k/mm3 (150-375); Red Blood Count 3.82 M/mm3 (4.2-5.4); White Blood Count 8.9 K/mm3 (4.5-10.0)
--- NOTE | 2024-10-28 21:36 | ED.CHESTPAIN ---
HPI - Chest Pain General Chief Complaint: Chest Pain Stated Complaint: CP, hysteroscopy this AM Time Seen by Provider: 10/28/24 21:05 Source: patient Mode of arrival: ambulatory Limitations: no limitations History of Present Illness HPI narrative: Patient presents with central chest pain that started at approximately 1730. Occurring intermittently although has not occurred again now that in the ED. Associated with a little dizziness. No history of similar. She was short of breath once but this has resolved. Described as a pain/pressure mid chest. No radiation into jaw/arms/back. Underwent hysteroscopy this morning at [facility] with Dr Leroy Rizzo. No edema appreciated. PCP Ally Astudillo in [place]. No recent cough, fevers, chills. Did not undergo any form of intubation / advanced airway for procedure. Thought it might be gas pain. no nausea/vomiting. Has an IUD . Cardiac risk factors HTN:0 HLD:0 DM:0 Obese:0 Smoker: Yes (vapes nicotine) Personal history AZ/TIA/CVA: 0 Fam Hx AZ in first degree relative <65yo:0 Related Data Allergies Allergy/AdvReac Type Severity Reaction Status Date / Time No Known Allergies Allergy Verified 10/28/24 21:00 [facility] Past Medical History Medical History Status post hysteroscopy IUD (intrauterine device) in place Social History Social History Tobacco type: e-cigarettes/vaping Additional smoking assessment comments: contains nicotine Exam Narrative: GENERAL: Well-appearing, well-nourished, and in no acute distress. HEAD: Normocephalic, atraumatic. EYES: Non injected, non icteric ENT: Nares clear, no rhinorrhea or epistaxis. Gross auditory acuity intact. NECK: Supple. No meningismus. CHEST: Speaking in full sentences. No respiratory distress. HEART: Regular rate and rhythm. . ABDOMEN: Soft, nondistended. No rigidity or guarding. Not peritoneal EXTREMITIES: Normal range of motion. No lower extremity edema. SKIN: Warm, dry, no rash. NEURO: No focal deficits. Alert and oriented. Answering questions. Following commands. Normal speech without aphasia or dysarthria. PSYCH: Normal mood and affect. Course Vital Signs Vital signs: Vital Signs Temperature 97.7 F 10/28/24 21:05 Pulse Rate 62 10/28/24 21:05 Respiratory Rate 14 10/28/24 21:05 Blood Pressure 123/78 10/28/24 21:05 Pulse Oximetry 100 10/28/24 21:05 Oxygen Delivery Room Air 10/28/24 21:05 Temperature 97.7 F 10/28/24 21:05 Pulse Rate 58 L 10/28/24 22:47 Respiratory Rate 16 10/28/24 22:47 Blood Pressure 100/62 10/28/24 22:47 Pulse Oximetry 100 10/28/24 22:47 Oxygen Delivery Room Air 10/28/24 21:12 MDM - Chest Pain MDM Narrative Medical decision making narrative: Patient presents with chest pain starting at 1730. Occurring intermittently. Hasn't occurred since arriving to the ED. Underwent hysteroscopy this morning. No intubation/supraglottic device/anesthesia however. In the emergency department they are afebrile with vital signs within normal limits. HEART SCORE History 2 highly suspicious 1 moderately suspicious 0 slightly suspicious History score [address] depression/elevation not due to LBBB, LVH, or digoxin [address] depression but LBBB, LVH, nonspecific repolarization changes 0 normal ECG score 0 Age 2 >/= 65 1 45-64 0 <45 Age score 0 Risk factors (HTN, hypercholesterolemia, DM, obesity with BMI >30, current smoker or cessation </=3mo), positive fam hx with parent or sibling with CVD before age 65, atherosclerotic disease (prior AZ, PCI/CABG, CVA/TIA, or peripheral arterial disease) 2 >/= 3 risk factors or history of atherosclerotic dz 1 - 1-2 risk factors 0 no known risk factors Risk factor score 1 Initial Troponin 2 >3 times normal limit 1 1-3 times normal limit 0 less than or equal to normal limit Troponin score 0 Total HEART Score 1 Dimer normal. Will not proceed further workup. CBC without marked abnormalities. Repeat troponin normal. Patient otherwise stable for DC. Differential Diagnosis Differential diagnosis: Likely stable angina, unstable angina pectoris, atypical chest pain, st elevation myocardial infarction, chest pain, biliary colic and other (PE; medication side effect ; considered anesthesia complication if applicable) Lab Data 10/28/24 21:26 10/28/24 21:26 Labs: Lab Results 10/28/24 10/28/24 10/29/24 Range/Units 21:26 21:26 00:30 WBC 8.9 (4.5-10.0) K/mm3 RBC 3.82 L (4.2-5.4) M/mm3 Hgb 12.2 (12.0-15.0) g/dL Hct 36.9 L (37.0-47.0) % MCV 96.6 (80-100) fl MCH 31.9 (26-34) pg MCHC 33.1 (32-36) g/dl RDW 12.5 (11.5-14.5) % Plt Count 222 (150-375) k/mm3 MPV 9.9 (7.4-10.4) fl Immature Gran % (Auto) 0.3 (0-0.5) % Neut % (Auto) 63.8 (45.5-73.1) % Lymph % (Auto) 26.3 (18.3-44.2) % [place] % (Auto) 8.2 (2.6-8.5) % Eos % (Auto) 0.8 (0-4.4) % Baso % (Auto) 0.6 (0.2-1.2) % Lymph # (Auto) 2.35 (0.9-3.2) K/mm3 [place] # (Auto) 0.7 H (0.1-0.6) K/mm3 Eos # (Auto) 0.1 (0-0.3) K/mm3 Baso # (Auto) 0.1 (0.0-0.1) K/mm3 Abs Immat Gran (auto) 0.03 (0.00-0.031) K/mm3 Absolute Neuts (auto) 5.7 (1.3-6.7) K/mm3 Absolute Nucleated RBC 0.000 (0.0-0.012) K/mm3 Nucleated RBC % 0.0 (0.0-0.2) % PT 13.5 (11.1-14.7) Seconds INR 1.0 APTT 26.5 (22.3-36.8) Seconds D-Dimer < 0.27 Cancelled (<0.48) ug/mL Sodium 135 L (137-145) mmol/L Potassium 3.5 (3.4-5.0) mmol/L Chloride 101 (98-107) mmol/L Carbon Dioxide 27 (22-30) mmol/L Anion Gap 7 (4-12) mmol/L BUN 8 (7-17) mg/dL Creatinine 0.71 (0.7-1.0) mg/dL Estim Creat Clear Calc 89 ml/min Estimated GFR > 60 (59 - ) Glucose 99 (65-110) mg/dL Calcium 9.0 (8.4-10.2) mg/dL Total Bilirubin 0.2 (0.2-1.3) mg/dL AST 30 (14-36) U/L ALT 14 (6-35) U/L Alkaline Phosphatase 41 (38-126) U/L Troponin I 0.012 < 0.012 (0.000-0.034) ng/mL Total Protein 7.4 (6.3-8.2) g/dL Albumin 4.7 (3.5-5.1) g/dL Lipase 80 (23-300) U/L Imaging Data Attestation: I personally reviewed and interpreted this imaging study as follows: My impression: Normal chest x-ray on my independent interpretation ECG Data EKG #1: Attestation: I personally reviewed and interpreted this ECG as follows: ECG completion date: 10/28/24 ECG completion time: 21:08 Interpretation: Normal sinus rhythm at a rate of 63 beats per minute. OH interval 139. QRS 94. QT/QTC 370/379. Good R-wave progression across the precordial leads. No T-wave inversions. EKG #2: Attestation: I personally reviewed and interpreted this ECG as follows: ECG completion date: 10/29/24 ECG completion time: 00:53 Interpretation: Sinus bradycardia at a rate of 48 beats per minute. OH interval 146. QRS 93. QT/QTC 415/372. Good R-wave progression across the precordial leads. No T-wave inversion. Normal axis. Discharge Plan Discharge Clinical Impression: Chest pain, Status post hysteroscopy Patient Disposition: Home Condition: Stable Instructions: Antibiotic Form, Chest Pain (ED) Additional Instructions: Your workup did not reveal a cause of your chest pain. This included chest x-ray, labs including to normal troponins (cardiac enzymes) and EKGs. Follow-up with your primary care provider. Return to the emergency department any new or worsening symptoms. Patient Language: Pashto Prescriptions: No Action amoxicillin 875 mg tablet 875 mg PO Q12H Qty: 20 0RF Follow-up/Referrals: [facility] [Primary Care Provider, Unknown] Stand Alone Forms: Work/School Release IP Time of Disposition: 01:15
[2024-10-28 21:45] LABS: Alanine Aminotransferase 14 U/L (6-35); Albumin Level 4.7 g/dL (3.5-5.1); Alkaline Phosphatase 41 U/L (38-126); Anion Gap 7 mmol/L (4-12); Aspartate Amino Transferase 30 U/L (14-36); Bilirubin,Total 0.2 mg/dL (0.2-1.3); Blood Urea Nitrogen 8 mg/dL (7-17); Calcium 9.0 mg/dL (8.4-10.2); Carbon Dioxide 27 mmol/L (22-30); Chloride 101 mmol/L (98-107); Estimated CRCL calculation 89 ml/min; Estimated Glomerular Filt Rate > 60; Glucose 99 mg/dL (65-110); Lipase 80 U/L (23-300); Potassium 3.5 mmol/L (3.4-5.0); Sodium 135 mmol/L (137-145); Total Protein 7.4 g/dL (6.3-8.2)
[2024-10-28 21:52] LABS: INR 1.0; Prothrombin Time 13.5 Seconds (11.1-14.7)
[2024-10-28 21:53] LABS: Partial Thromboplastin Time 26.5 Seconds (22.3-36.8)
[2024-10-28 21:57] LABS: Troponin I 0.012 ng/mL (0.000-0.034)
[2024-10-28] MEDS: SIMETHICONE 80 MG TAB.CHEW PO (22:46)
[2024-10-28 22:47] VITALS: BP 100/62; PULSE 58; RESP 16; O2SAT 100
--- NOTE | 2024-10-29 00:26 | ECG_ITS ---
Test Date: 2024-10-29 00:53:21 Measurements Intervals [place] Rate: 48 P: 67 DC: 146 QRS: 66 QRSD: 93 T: 36 QT: 415 QTc: 372 Interpretive Statements SINUS BRADYCARDIA NONSPECIFIC T-WAVE ABNORMALITY ABNORMAL ECG Electronically Signed On 10-29-2024 07:59:20 CDT by Héctor David M.D.
[2024-10-29 01:00] LABS: Troponin I < 0.012 ng/mL (0.000-0.034)
== END 2024-10-29 01:22 | disposition home or self-care (01) ==
PROVIDERS: Emergency Provider Student in an Organized Health Care Education/Training Program; PCP Physician Assistant
DX: R07.9 Chest pain, unspecified (principal); Z98.890 Other specified postprocedural states; F17.290 Nicotine dependence, other tobacco product, uncomplicated; R94.31 Abnormal electrocardiogram [ECG] [EKG]; R00.1 Bradycardia, unspecified
CPT/HCPCS: 36415; 71046; 80053; 83690; 84484; 85025; 85380; 85610; 85730; 93005; 99284; A9270

== ENCOUNTER 2025-01-01 15:56 | Outpatient (CLI) | payer BC, SELFPAY ==
[2025-01-01 16:15] LABS: Hematocrit 41.4 % (37.0-47.0); Hemoglobin 13.9 g/dL (12.0-15.0); Mean Corpuscular HGB Conc 33.6 g/dl (32-36); Mean Corpuscular Hemoglobin 32.4 pg (26-34); Mean Corpuscular Volume 96.5 fl (80-100); Platelet Count Result 254 k/mm3 (150-375); Red Blood Count 4.29 M/mm3 (4.2-5.4); White Blood Count 5.8 K/mm3 (4.5-10.0)
[2025-01-01 16:29] LABS: Iron 59 ug/dL (37-170)
[2025-01-01 16:38] LABS: Percent Iron Saturation 24 % (20-50)
[2025-01-01 17:10] LABS: Ferritin 11.40 ng/mL (6.24-137)
[2025-01-01 17:44] LABS: CRP < 0.5 mg/dL (<1.0)
[2025-01-04 14:08] LABS: Deamidated Gliadin Abs, IgA 3 units (0-19); Deamidated Gliadin Abs, IgG 1 units (0-19); Immunoglobulin A, Qn 182 mg/dL (87-352)
== END 2025-01-01 15:57 | disposition home or self-care (01) ==
LOC: ANHLAB 15:57
PROVIDERS: PCP Physician Assistant; Visit Provider Nurse Practitioner Family
DX: D64.9 Anemia, unspecified (principal); K62.5 Hemorrhage of anus and rectum
CPT/HCPCS: 36415; 82728; 82784; 83540; 83550; 85027; 86140; 86231; 86258

== ENCOUNTER 2025-01-19 02:21 | Day surgery (SDC) | payer BC, SELFPAY ==
[2025-01-12 10:38] VITALS: BMI 25.6
--- OUTSIDE RECORDS SUMMARY | 2025-01-19 02:24 | XMS_ITS | Encounter Summary ---
Author Organization [facility] Address [address] [place] [address] Care Team Providers Care Shirt Line Operator Name Role Phone Ally Barajas PA-C Primary Care Provider [phone] Ramsey Mccann BULLET LUBRICANT MIXER Unavailable [phone] Encounter Details Date Type Department Care Team (Late st Contact Info) Description 03/08/2020 [facility] [address] [place] [id number] Ally Barajas PA-C [address] [place] [address] RE: Question Social History Tobacco Use Types [...] Sex Assigned at Female 03/20/2024 1:48 PM ENGINEERING ASSISTANT Legal Sex Female 8:31 PM CDT Gender Identity Not on file Sexual Orientation Not on file COVID-19 Exposure Response Date Recorded In the last month, have you been in contact with someone who was confirmed or suspected to have Coronavirus / COVID-19? No / Unsure 03/09/2020 6:28 AM ENGINEERING ASSISTANT documented as of this encounter Progress Notes * Briana Alarcon RN - 03/08/2020 2:03 PM CST Lipid, TSH with reflex, and glucose was ordered in September 2019. Any other orders? NEERING ASSISTANT documented in this encounter Plan of Treatment [...] documented as of this encounter Care Teams Shirt Line Operator Relationship Specialty Start Date End Date Ally Barajas PA-C [address] [facility] [address] [place] [address] PCP - General PHYSICIAN SENIOR BUDGET ANALYST 05/06/19 Ramsey Mccann, BULLET LUBRICANT MIXER [address] [facility] [address] [place] [address] Nurse Practitioner Women's Health 08/30/21 documented as of this encounter
--- OUTSIDE RECORDS SUMMARY | 2025-01-19 02:24 | XMS_ITS | Encounter Summary ---
Author Organization [facility] Address On license of [facility] [place] [address] Care Team Providers Care Public Health Training Assistant Name Role Phone Ally Barajas PA-C Primary Care Provider [phone] Ramsey Mccann LEGAL COORDINATOR Unavailable [phone] Encounter Details Date Type Department Care Team (Late st Contact Info) Description 05/15/2022 [employer] [facility] Patient Accounts [address] [place] [address] [facility], [facility] Provider Correction to Declined Credit Card message [...] Master's degree (e.g., MA, MS, [employer], MEd, POT FIRER, [employer]) 01/03/2021 Comments Yes Sex and Gender Information Value Date Recorded Sex Assigned at Female 03/20/2024 1:48 PM INCINERATOR PLANT SUPERVISOR Legal Sex Female 8:31 PM CDT [...] documented as of this encounter Care Teams Public Health Training Assistant Relationship Specialty Start Date End Date Ally Barajas PA-C [address] [facility] [address] [place] [address] PCP - General PHYSICIAN QUARRYMAN 05/06/19 Ramsey Mccann, LEGAL COORDINATOR [address] [facility] [address] [place] [address] Nurse Practitioner Women's Health 08/30/21 documented as of this encounter
--- OUTSIDE RECORDS SUMMARY | 2025-01-19 02:24 | XMS_ITS | Continuity of Care Document ---
Author Organization [place] - [facility] [place] Address [address] [place] [address] Care Team Providers Care Rubbish Collector Name Role Phone JUVENTINO BARCENAS Primary Care Provider [phone] Assessment No assessment recorded. Plan of Treatment Reminders Order Date Submit Date Provider Last Modified By Organization Details Last Modified Time Details Appointments None recorded. Lab None recorded. Referral gastroenter ologist referral 2024 025 [facility], [address], [address], [place], [address], 12:02:13 Procedures None recorded. Surgeries None recorded. Imaging None recorded. Medication Orders None recorded. Patient TargetsNo targets recorded. Patient InstructionsNo instructions recorded. Reason for Referral Private Equity Analyst Referral for Painless rectal bleeding Referring Physician: Sree Pratt POND WORKER, Encounter Date: 11/27/2024 Results Created Date Observation Date Name Description Value Unit Range Abnormal Flag Note LastModifiedBy Organization Detail LastModifiedTime 10/29/1910/28/2024 pregn jackson test, urine HCG negati ve Not Available [place] [address], [place], [address], 10/28/2024 10:31:25 Result Notes None recorded. Problems Name Problem SNOMED Code Status Onset Date Resolution Date Notes Provider Name and Address Organization Details Recorded Time Abnormal cervical Papanico laou smear 171467843 Completed recent - had one normal follow up pap in June 02 Bhavesh boo [facility] 3 17:05:41 Depressi ve disorder 08385961 Completed want to observe - [facility] 17:05:41 Genital herpes simplex 36540850 Completed 1 & 2 - to recieve [facility]phlaxi s [facility] 3 17:05:41 Ultrasou nd scan abnormal 839239012 Completed EIF- repeat US 28w x1 Bhavesh Fuentes [facility] 3 17:05:41 Uterine size for dates discrepa ncy 265064413 Completed Bhavesh Fuentes [facility] 3 17:05:41 Polyhydr amnios 42490762 Completed GOYO 42 per Maryuri [facility] 08/29 GOYO 38 - to schedule consult for delivery rec SB informed- [facility] 09/05 1:30 NST/BPP & [facility] 3 17:05:41 Pregnanc y [id number] Completed 202210/05/2022 Bhavesh Fuentes [facility] 3 17:05:48 Problem Notes None recorded. Procedures Surgical History Date Name Laterality Status Provider Name and Address Organization Details Recorded Time 10/29/19 25 Hysteroscopy completed SREE PRATT MD [address], [place], [address], [facility] 10/28/2024 11:55:31 10/29/19 25 IUD Insertion completed SREE PRATT MD [address], [place], [address], [facility] 10/28/2024 11:55:49 09/18/19 25 Date of Last Pap Smear completed Josseline Valle [facility] 10/09/2024 14:12:59 09/24/19 24 IUD Insertion completed PIEDAD Morales [address], [place], [address], [facility] 09/24/2023 15:20:23 10/18/19 22 IUD Removal completed PIEDAD Rogers- [address], [place], [address], [facility] 10/17/2021 16:08:50 06/12/19 22 Colposcopy completed Zeenat [facility] 02/14/2022 19:38:43 06/12/19 22 Colposcopy completed Zeenat [facility] 02/14/2022 20:04:50 07/07/19 21 Laparoscopy completed [facility] 02/14/2022 20:04:59 06/12/19 21 Endometrial Biopsy completed Zeenat [facility] 02/14/2022 20:05:06 02/11/18 96 Myringotomy laser-assist completed [facility] 02/14/2022 20:05:35 Imaging Results None recorded. Procedure Notes None recorded. Medical Equipment None Reported. Allergies No known drug allergies Medications Name Sig Start Date Stop Date Status Note LastModified by Organization Details LastModified Time Mirena 21 mcg/24 hr (up to 8 years) 52 mg intrauterin e device Take 1 device by intrauter ine route. 2024 active Not Available Not Available Not Avai lable venlafaxine ER 75 mg capsule,ext ended release 24 hr 10/17 completed Not Available Not Available Not Available citalopram 40 mg tablet 03/19 completed Not Available Not Available Not Available ibuprofen 800 mg tablet TAKE 1 TABLET BY MOUTH 2 HOURS BEFORE PROCEDURE 11/27 completed Not Available Not Available Not Available fluconazole 150 mg tablet TAKE ONE TABLET BY MOUTH FOR ONE DOSE 08/08 completed Not Available Not Available Not Available valacyclovi r 1 gram tablet 10/31 completed Not Available Not Available Not Available hydrocodone 5 mg-acetamin ophen 325 mg tablet TAKE 1 TABLET BY MOUTH 2 HOURS BEFORE PROCEDURE 11/27 completed Not Available Not Available Not Available ondansetron HCl 8 mg tablet TAKE 1 TABLET BY MOUTH 2 HOURS BEFORE PROCEDURE 11/27 completed Not Available Not Available Not Available meloxicam 15 mg tablet 10/17 completed Not Available Not Available Not Available metronidazo le 0.75 % (37.5 mg/5 gram) vaginal gel INSERT 1 APPLICATO RFUL VAGINALLY EVERY DAY FOR 5 DAYS 09/07 completed Not Available Not Available Not Available clonazepam 0.5 mg tablet 10/17 completed Not Available Not Available Not Available venlafaxine ER 150 mg capsule,ext ended release 24 hr 10/17 completed Not Available Not Available Not Available metronidazo le 500 mg tablet Take 1 tablet twice a day by oral route for 7 days. 09/21 completed Not Available Not Available Not Available phentermine 37.5 mg tablet 10/17 completed Not Available Not Available Not Available valacyclovi r 500 mg tablet TAKE 1 TABLET BY MOUTH TWICE A DAY 10/31 completed Not Available Not Available Not Available ciprofloxac in 500 mg tablet 10/17 completed Not Available Not Available Not Available sulfamethox azole 800 mg-trimetho prim 160 mg tablet 10/17 completed Not Available Not Available Not Available alprazolam 0.5 mg tablet TAKE 1 TABLET BY MOUTH 2 HOURS BEFORE PROCEDURE 11/27 completed Not Available Not Available Not Available ofloxacin 0.3 % ear drops 10/17 completed Not Available Not Available Not Available amoxicillin 875 mg tablet TAKE 1 TABLET BY MOUTH EVERY 12 HOURS 09/07 completed Not Available Not Available Not Available hydroxyzine HCl 25 mg tablet 03/19 completed Not Available Not Available Not Available cefdinir 300 mg capsule 10/17 completed Not Available Not Available Not Available doxycycline hyclate 100 mg tablet 10/17 completed Not Available Not Available Not Available amoxicillin 875 mg-potassiu m clavulanate 125 mg tablet 10/17 completed Not Available Not Available Not Available tobramycin 0.3 %-dexametha sone 0.1 % eye drops,suspe nsion 10/17 completed Not Available Not Available Not Available bupropion HCl XL 300 mg 24 hr tablet, extended release TAKE 1 TABLET BY MOUTH EVERY DAY 03/19 completed Not Available Not Available Not Available bupropion HCl XL 150 mg 24 hr tablet, extended release 10/17 completed Not Available Not Available Not Available Zylet 0.3 %-0.5 % eye drops,suspe nsion 10/17 completed Not Available Not Available Not Available + DHA 28 mg iron-800 mcg-200 mg oral pack Take 1 pack every day by oral route with meals for 30 days. 06/13 completed Not Available Not Available Not Available Plus DHA 27 mg iron-1 mg-312 mg-250 mg oral pack Take 1 pack every day by oral route for 30 days. 05/26 completed Not Available Not Available Not Available Vitals Date Recorded Body height Body mass index (BMI) Body weight Systolic And Diastolic Provider Name and Address Organization Details Last Updated DateTime 11/27/2024 160.02 cm 25 kg/m2 11905.52 g 117/78 mm[Hg] Josseline Valle [facility] 11/27/2024 15:53:36 Social History Question Answer Notes LastModified by Organizat ion Details LastModified Time Tobacco Smoking Status Former Smoker Amrita boo, [facility] 09/19/2022 10:27:01 Do You Have An Advance Directive? No Information not available 03/19/2022 If You Are , What Was Your Level Of Alcohol Consumption Prior To ? Occasional [email or web address] Information not available 09/19/2022 How Many Years Have You Consumed Alcohol? 8 [email or web address] Information not available 02/14/2022 Are You Blind Or Do You Have Difficulty Seeing? No Information not available 10/17/2021 What Is Your Level Of Caffeine Consumption? Occasional Information not available 03/19/2022 How Much Tobacco Do You Chew? None Information not available 03/19/2022 In The 14 Days Before Symptom Onset, Have You Had Close Contact With A Laboratory-confir med COVID-19 While That Case Was Ill? No Information not available 02/14/2022 In The 14 Days Before Symptom Onset, Have You Had Close Contact With A Person Who Is Under Investigation For COVID-19 While That Person Was Ill? No [email or web address] Information not available 02/14/2022 Have You Been To An Area Known To Be High Risk For COVID-19? No [email or web address] Information not available 02/14/2022 Are You Deaf Or Do You Have Serious Difficulty Hearing? No Information not available 10/17/2021 What Type Of Diet Are You Following? REGULAR Information not available 10/17/2021 What Is The Highest Grade Or Level Of School You Have Completed Or The Highest Degree You Have Received? [id number] [email or web address] Information not available 02/14/2022 Are There Any Guns Present In Your Home? Yes [email or web address] Information not available 02/14/2022 Do You Use Protection During Sex? No Information not available 03/19/2022 Do You Use Your Seat Belt Or Car Seat Routinely? Yes Information not available 10/17/2021 Do You Have Smoke And Carbon Monoxide Detectors In Your Home? Yes Information not available 10/17/2021 At What Age Did You Start Smoking Tobacco? 18 Information not available 03/19/2022 How Much Tobacco Do You Smoke? No Information not available 03/19/2022 Do You Use Sunscreen Routinely? Yes [email or web address] Information not available 11/27/2024 How Many Years Have You Smoked Tobacco? 12 Information not available 03/19/2022 Have You Used IV Drugs? No Information not available 03/19/2022 Do You Have Difficulty Walking Or Climbing Stairs? No [email or web address] Information not available 09/19/2022 Sex: Female Functional Status Question Answer Note LastModified by Organizat ion Details LastModified Time Do you use any illicit or recreational drugs? No Information not available 10/17/2021 Do you or have you ever used any other forms of tobacco or nicotine? Yes [email or web address] Information not available 09/19/2022 What is your level of alcohol consumption? None Information not available 03/19/2022 Are you able to walk independently without assistance or assistive devices? [email or web address] Information not available 10/17/2021 Are you able to care for yourself independently? 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 No [email or web address] Information not available 09/19/2022 Do you or have you ever used e-cigarettes or vape? Current user of electronic cigarettes [email or web address] Information not available 09/19/2022 What is your exercise level? Occasional Information not available 10/17/2021 Mental Status Question Answer Note LastModified by Organization D etails LastModified Time Do you feel stressed (tense, restless, nervous, or anxious, or unable to sleep at night)? [id number] [email or web address] Information not available 02/14/2022 Family History Relationship Description Onset Age of this Age Resolved Age Notes LastModified by Organization Details LastModified Time Paternal Grandfather Hypertensive disorder [email or web address] Not available 02/14 20:02:14 Paternal Grandfather Diabetes mellitus [email or web address] Not available 02/14 20:02:22 Maternal Aunt Tachycardia [email or web address] Not available 11/27/2024 15:44:17 Maternal Aunt Leukemia [email or web address] Not av ailable 11/27/2024 15:44:17 Maternal Grandfather Anemia [email or web address] Not available 05/2022 20:03:04 Maternal Grandfather Malignant neoplasm of urinary bladder Not available 2024 15:44:17 Maternal Grandfather Malignant neoplasm of prostate [email or web address] Not available 2024 15:44:17 Maternal Grandmother Malignant melanoma [email or web address] Not available 2024 15:44:17 Medical History Condition Response Allergies (Food, seasonal, environmental ) N Other N Breast Cancer N Drug/Latex Allergies/Reactions N Blood Transfusion N Lung Disease N Dermatologic Disorders N Defects or Inherited Disease N Breast Problem N Gestational Diabetes N Hematologic disorders N Anesthesia Complications N History of STI Y Deep Vein Thrombosis N Polycystic ovary syndrome N Anxiety Disorder Y Autoimmune disease N Arthritis N Infertility N Polyps N Acid Reflux (GERD) Y History of abnormal pap Y Cancer N Stroke N Varicosities N Neurologic/Epilepsy Y Endometriosis Y High Cholesterol N Headaches Y Fibromyalgia N Kidney Disease N Heart Problems N Kidney or Bladder Problems N Thyroid Problems N GI Problems N Eating Disorder N Anemia N Art (IVF or FET) N Psychiatric Illness N Ovarian Cancer N Diabetes N Pulmonary (TB, Asthma) N Hepatitis/Liver Disease N No Past Medical History N Eczema N Urinary Tract Infection N Abuse/Domestic Violence N Asthma N Trauma/Violence N Depression/ depression Y Heart Disease N Pre-Eclampsia N Hypertension N Osteoporosis N Thrombophilias N Gynecological History Statement/Question Response Date of Last Mammogram Flow Light Date of LMP 11/23/2024 N Was last menstrual period normal Y STIs/STDs Yes Date of Last Colonoscopy Desired Control Method IUD Abnormal Pap Yes On BCP's at Conception? N HPV Vaccine N Colposcopy 06/11/2021 Duration of Flow (days) 4 Current Control Method None Age at First Child 22 Are cycles usually normal Y Frequency of Cycle (Q days) 28 Sexually Active? Y Menses Monthly Y Date of DEXA bone scan Age of first menstrual cycle 15 Date of Last Pap Smear 09/17/2024 Sexual Problems? Y LMP Definite N 06/09/2021 Obstetrics History GPAL:G 2 P 2 0 0 2 Type Value Full Term 2 Living 2 Total 2 Past Encounters Encounter ID Performer Location Encounter Start Date Encounter Closed Date Diagnosis/Indication Diagnosis SNOMED-CT Code Diagnosis ICD10 Code Diagnosis IMO Codes Diagnosis Note [id number] SREE PRATT MD [place] [address] [address] 10/28/2024 09:42:12 10/28/2024 12:39:31 Contraception status 159959034 Z30.569 1195633 - Mirena IUD removed and reinserted without issue- due for removal 10/2032- rtc 1 month for string check [id number] SREE PRATT MD [place] [address] [address] 11/27/2024 15:43:35 11/27/2024 16:21:12 Painless rectal bleeding 290945127 K62.5 [id number] - reports rectal bleeding during periods, does not have bleeding outside of periods- hx of stage I endometrio sis- recommend colonoscop y referral prior to diagnostic laparoscop y to evaluate for colonic/re ctal disease Intrauteri ne contraceptive device in situ 754509640 Z30.431 94242455 - Mirena IUD placed 10/28, due for removal 10/2032- no issues at this time Health Concerns Section Related Observation LastModified by Organization Detai ls LastModified Time None Recorded Concern Status LastModified by Organization Details LastModified Time None Recorded Payers Encounter Date Sequence Insurance Name Policy Number Policy Mendoza Covered Member ID Mendoza Member ID Guarantor Name 11/27/2024 1 [facility] ([facility]) [id number] Jovita Gamboa [id number] Jovita Gamboa Notes Date Note Type Note Provider Name and Address Organization Details Recorded Time 11/27/2024 text/html ROS as noted in the HPI Presents today for IUD check. Had mirena IUD placed 10/28 at time of hysteroscopic IUD removal. Has had no issues since insertion. Patient has not had any cramping or pain. She is overall happy with the IUD. Did have a period starting Saturday, heavy and associated with rectal bleeding/mucus. This has continued from her previous periods. Hx of stage I endometriosis. Would like further evaluation. SREE PRATT MD [address], [place], [address], [place] - [facility] 11/27/2024 16:15:04 OBGyn Episode No OBEpisode recorded.
--- OUTSIDE RECORDS SUMMARY | 2025-01-19 02:24 | XMS_ITS | Data Portability ---
Author Organization [facility] [place] Address [address] [place] [address] [place] [address] Care Team Providers Care Bobbin Fixer Name Role Phone JUVENTINO BARCENAS Primary Care Provider Assessment Encounter Date Assessment Date Assessment LastModified by Organization Details LastModified Time 09/17/2024 09/17/2024 Annual gynecological exam performed. Patient will come back in a year unless there are new symptoms. [email or web address] Not available 09/17/2024 16:16:37 Plan of Treatment Reminders Order Date Submit Date Provider Last Modified By Organization Details Last Modified Time Details Appointments None recorded. Lab test, urine 2024 025 [email or web address] [place], [place], [address], 5 10:31:54 pap, IG + HR HPV - HPV regardless but if HPV is positive need subtyping 16,18/45 2024 025 [facility] (Lab), [address], [place], [address], 5 15:19:31 Referral gastroenter ologist referral 2024 025 [facility]astro[facility], [address], [place], [address], 5 12:02:13 Procedures None recorded. Surgeries hysteroscop y, removal of foreign body (SURG) 2024 025 8 [facility], [address], [place], [address], 15:47:45 Imaging US, transvagina l 2024 025 [email or web address] 8 [place], [facility] [address], [place], [address], 09:14:54 Medication Orders Mirena 21 mcg/24 hr (up to 8 years) 52 mg intrauterin e device 2024 025 [email or web address] Not available 14:24:57 Patient TargetsNo targets recorded. Patient InstructionsNo instructions recorded. Reason for Referral Tie In Hand Referral for Painless rectal bleeding Referring Physician: Sree Pratt CAREER CENTER ADVISOR, Encounter Date: 11/27/2024 Results Created Date Observation Date Name Description Value Unit Range Abnormal Flag Note LastModifiedBy Organization Detail LastModifiedTime 09/08/1909/07/2024 WOMEN 'S HEALT H SWAB PLUS, NERI bacterial vaginosis (bv), tma Positi ve negati ve abnormal Not Available [facility] (Lab) [address], [place], [address], 09/08/2024 11:58:27 09/08/19 25 09/07/2024 WOMEN 'S HEALT H SWAB PLUS, NERI adrian species, tma Negati ve negati ve Not Available [facility] (Lab) [address], [place], [address], 09/08/2024 11:58:27 09/08/19 25 09/07/2024 WOMEN 'S HEALT H SWAB PLUS, NERI adrian glabrata, tma Negati ve negati ve Not Available [facility] (Lab) [address], [place], [address], 09/08/2024 11:58:27 09/08/19 25 09/07/2024 WOMEN 'S HEALT H SWAB PLUS, NERI trichomonas vaginalis, tma Negati ve negati ve Not Available [facility] (Lab) [address], [place], [address], 09/08/2024 11:58:27 09/08/1909/07/2024 WOMEN 'S HEALT H SWAB PLUS, NERI chlamydia trachomatis, PCR Negati ve negati ve Not Available [facility] (Lab) [address] [place], [address], 09/08/2024 11:58:27 09/08/19 25 09/07/2024 [facility] SWAB PLUS, NERI neisseria gonorrhoeae, PCR Negati ve negati ve Bacte rial vagin osis detec ts the follo wing bacte gamaliel assoc iated with bacte rial vagin osis (BV): Lacto bacil arnel (L. gasse ri, L. crisp atus and L. jense ilan), Gardn erell a vagin amilcar, and Atopo bium vagin ae. A singl e quali tativ e resul t is repor christi base on instr ument softw are to deter mine BV posit naty or negat naty statu s. The Magi da speci es group tests for C. albic ans, C. tropi calis , C. parap oracio is, C. dubli niens is. Testi ng is perfo rmed using the Trans cript ion Media christi Ampli ficat ion metho d. Tests for Magi da glabr hitesh, Trich omona s vagin amilcar, Chlam ydia trach omati s, and Neiss eria gonor rhoea e are also inclu ded in this panel . Not Available [facility] (Lab) [address], [place], [address], 09/08/2024 11:58:27 09/18/19 25 09/17/2024 IMAGE GUIDE D PAP AND HPV REGAR DLESS image guided Pap, HPV regardless of Pap result SEE RESULT S BELOW abnormal CASE REPOR T: Cytol ogy Gynec ologi parminder Repor t Case: [id number] Autho kane faust Provi keli: Fabi Brewer NP Colle cted: 09/17 1703 Order ing Locat ion: [place] Patho log[facility] Recei mikayla: 09/18 0242 First Vivianee n: Lorenzo Zhou ed, [place] Patho logis t: Elizabeth Pineda MD Speci men: Fay clark Pap - Image d, Cervi x STATE MENT OF ADEQU ACY: Satis facto ry for evalu ation Trans forma tion zone compo nent prese nt ----- ----- ----- ----- ----- ----- ----- ----- ----- ----- ----- ----- ----- ----- ----- ----- ----- ---- FINAL DIAGN OSIS: Epith elial Cell Abnor malit y, Squam ous Cell: Atypi parminder Squam ous Cells of Undet ermin ed Signi reinaldo ce (ASC- US). Elect sunday henderson by Elizabeth Pineda MD on 2024 at 1409 CDT ----- ----- ----- ----- ----- ----- ----- ----- ----- ----- ----- ----- ----- ----- ----- ----- ----- ---- HPV RESUL TS: HPV mRNA E6/E7 : No HPV mRNA Detec christi NOTE: This high risk HPV mRNA assay detec ts fourt een high- risk HPV types (16, 18, 31, 33, 35, 39, 45, 51, 52, 56, 58, 59, 66, 68) witho ut diffe renti ation . COMME NT: This speci men was revie wed by a Cytot echno logis t and/o r Patho logis t (as indic ated in this repor t) after evalu ation using the Thinp rep Imagi ng Syste m. CLINI PARMINDER INFOR MATIO N: Menst rual Statu s: LMP (if appli cable ): Clini parminder Histo ry/Pr eviou s Pap: Type of Neopl emily (if appli cable ): Signi fican t Clini parminder Findi ngs: Other Histo ry: Hormo norbert (if appli cable ): SUGGE STED FOLLO W-UP: Follo w up as warra nted, based on curre nt guide lines and indiv idual patie nt consi derat ions. Not Available [facility] (Lab) [address], [place], [address], 09/22/2024 15:19:31 10/29/1910/28/2024 pregn jackson test, urine HCG negati ve Not Available [place] [address], [place], [address], 10/28/2024 10:31:25 09/17/19 25 09/16/2024 US, pelvi s No observ ation record ed. jose Nicolas [address] [place] [address], [place], [address], 09/22/2024 09:28:23 09/17/1909/16/2024 , trans vagin al No observ ation record ed. [facility] [address], [place], [address], 09/16/2024 18:43:02 Result Notes None recorded. Problems Name Problem SNOMED Code Status Onset Date Resolution Date Notes Provider Name and Address Organization Details Recorded Time Abnormal cervical Papanico laou smear 004409476 Completed recent - had one normal follow up pap in June 02 Bhavesh boo [facility] 3 17:05:41 Depressi ve disorder 92195514 Completed want to observe - dc'd tx Bhavesh boo [facility] 3 17:05:41 Genital herpes simplex 29884556 Completed 1 & 2 - to recieve prophlaxi s Bhavesh boo, [facility] 3 17:05:41 Ultrasou nd scan abnormal 028021775 Completed EIF- repeat US 28w x1 Bhavesh boo, [facility] 3 17:05:41 Uterine size for dates discrepa ncy 922007901 Completed Bhavesh boo, [facility] 3 17:05:41 Polyhydr amnios 89576054 Completed GOYO 42 per Maryuri RAMIREZ 08/29 GOYO 38 - to schedule consult for delivery rec SB informed- [facility] 09/05 1:30 NST/BPP & Consult for delivery recommend ations Bhavesh Fuentes [facility] 3 17:05:41 Pregnanc y 46698074 Completed 202210/05/2022 Bhavesh boo, [facility] 3 17:05:48 Problem Notes None recorded. Procedures Surgical History Date Name Laterality Status Provider Name and Address Organization Details Recorded Time 10/29/19 25 Hysteroscopy completed SREE PRATT MD [address], [place], [address], [facility] 10/28/2024 11:55:31 10/29/19 25 IUD Insertion completed SREE PRATT MD [address], [place], [address], [facility] 10/28/2024 11:55:49 09/18/19 25 Date of Last Pap Smear completed Josseline Valle [facility] 10/09/2024 14:12:59 09/24/19 24 IUD Insertion completed PIEDAD Morales [address], [place], [address], [facility] 09/24/2023 15:20:23 10/18/19 22 IUD Removal completed Kanwal Ho [facility]- [address], [place], [address], [facility] 10/17/2021 16:08:50 06/12/19 22 Colposcopy completed [facility] 02/14/2022 19:38:43 06/12/19 22 Colposcopy completed [facility] 02/14/2022 20:04:50 07/07/19 21 Laparoscopy completed [facility] 02/14/2022 20:04:59 06/12/19 21 Endometrial Biopsy completed [facility] 02/14/2022 20:05:06 02/11/18 96 Myringotomy laser-assist completed [facility] 02/14/2022 20:05:35 Imaging Results None recorded. [...] TABLET BY MOUTH 2 HOURS BEFORE PROCEDURE 10/17 /2025 completed Not Available Not Available Not Available [...] and Address Organization Details Last Updated DateTime 09/17/2024 160.02 cm 25.2 kg/m2 16993.12 g 114/73 mm[Hg] Amrita Patterson [facility] 09/17/2024 16:19:05 Date Recorded Body height Provider Name an d Address Organization Details Last Updated DateTime 10/09/2024 160.02 [facility]/09[facility]20[facility] 14:11:01 Date Recorded Body height Body mass index (BMI) Body weight Systolic And Diastolic Provider Name and Address Organization Details Last Updated DateTime 10/28/2024 160.02 cm 25.7 kg/m2 74365.89 g 123/82 mm[Hg] Mona Burns [facility] 10/28/2024 09:55:13 Date Recorded Body height Body mass index (BMI) Body weight Systolic And Diastolic Provider Name and Address Organization Details Last Updated DateTime 11/27/2024 160.02 cm 25 kg/m2 31696.52 g 117/78 mm[Hg] Josseline [facility] 11/27/2024 15:53:36 Social History Question Answer Notes LastModified by Organizat ion Details LastModified Time Tobacco Smoking Status Former Smoker Amrita boo [facility] 09/19/2022 10:27:01 Do You Have An Advance Directive? No Information not available 03/19/2022 If You Are , What Was Your Level Of Alcohol Consumption Prior To ? Occasional [email or web address] Information not available 09/19/2022 How Many Years Have You Consumed Alcohol? 8 Information not available 02/14/2022 Are You Blind [...] COVID-19 While That Case Was Ill? No [email or web address] Information not available 02/14/2022 In The 14 Days Before Symptom Onset, Have You Had Close Contact With A Person Who Is Under Investigation For COVID-19 While That Person Was Ill? No [email or web address] Information not available 02/14/2022 Have You Been To An Area Known To Be High Risk For COVID-19? No [email or web address] Information not available 02/14/2022 Are You Deaf Or Do You Have Serious Difficulty Hearing? No Information not available 10/17/2021 What Type Of Diet Are You Following? REGULAR Information not available 10/17/2021 What Is The Highest Grade Or Level Of School You Have Completed Or The Highest Degree You Have Received? GA03714-9 [email or web address] Information not available 02/14/2022 Are There Any Guns Present In Your Home? Yes [email or web address] Information not available 02/14/2022 Do You Use [...] 03/19/2022 Do You Use Sunscreen Routinely? Yes [email or web address] Information not available 11/27/2024 How Many Years Have You Smoked Tobacco? 12 Information not available 03/19/2022 Have You Used IV Drugs? No Information not available 03/19/2022 Do You Have Difficulty Walking Or Climbing Stairs? No [email or web address] Information not available 09/19/2022 Sex: Female Functional Status Question Answer Note LastModified by Organizat ion Details LastModified Time Do you use any illicit or recreational drugs? No Information not available 10/17/2021 Do you or have you ever used any other forms of tobacco or nicotine? Yes Information not available 09/19/2022 What is your level of alcohol consumption? None Information not available 03/19/2022 Are you able to walk independently without assistance or assistive devices? [email or web address] Information not available 10/17/2021 Are you able to care for yourself independently? 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 No [email or web address] Information not available 09/19/2022 Do you or have you ever used e-cigarettes or vape? Current user of electronic cigarettes [email or web address] Information not available 09/19/2022 What is your exercise level? Occasional Information not available 10/17/2021 Mental Status Question Answer Note LastModified by Organization D etails LastModified Time Do you feel stressed (tense, restless, nervous, or anxious, or unable to sleep at night)? [id number] [email or web address] Information not available 02/14/2022 Family History Relationship Description Onset Age of this Age Resolved Age Notes LastModified by Organization Details LastModified Time Paternal Grandfather Hypertensive disorder [email or web address] Not available 02/14 20:02:14 Paternal Grandfather Diabetes mellitus Not available 02/14 20:02:22 Maternal Aunt Tachycardia [email or web address] Not available 11/27/2024 15:44:17 Maternal Aunt Leukemia [email or web address] Not av ailable 11/27/2024 15:44:17 Maternal Grandfather Anemia [email or web address] Not available 05/2022 20:03:04 Maternal Grandfather Malignant neoplasm of urinary bladder [email or web address] Not available 2024 15:44:17 Maternal Grandfather Malignant neoplasm of prostate [email or web address] Not available 2024 15:44:17 Maternal Grandmother Malignant melanoma Not available 2024 15:44:17 Medical History Condition Response Other N Blood Transfusion N Dermatologic Disorders N Gestational Diabetes N Anxiety Disorder Y Autoimmune disease N Arthritis N Polyps N Infertility N Acid Reflux (GERD) Y Cancer N Varicosities N Stroke N Neurologic/Epilepsy Y Fibromyalgia N Headaches Y Kidney Disease N Heart Problems N Kidney or Bladder Problems N Eating Disorder N Art (IVF or FET) N Hepatitis/Liver Disease N No Past Medical History N Urinary Tract Infection N Asthma N Trauma/Violence N Thrombophilias N Allergies (Food, seasonal, environmental ) N Breast Cancer N Drug/Latex Allergies/Reactions N Lung Disease N Defects or Inherited Disease N Breast Problem N Hematologic disorders N Anesthesia Complications N History of STI Y Deep Vein Thrombosis N Polycystic ovary syndrome N History of abnormal pap Y Endometriosis Y High Cholesterol N Thyroid Problems N GI Problems N Anemia N Psychiatric Illness N Ovarian Cancer N Diabetes N Pulmonary (TB, Asthma) N Eczema N Abuse/Domestic Violence N Depression/ depression Y Heart Disease N Pre-Eclampsia N Hypertension N Osteoporosis N Gynecological History Statement/Question Response Date of [...] ICD10 Code Diagnosis IMO Codes Diagnosis Note [id number] Kanwal Doylesherin [facility] [address],[place] [address] 10/17/2021 15:49:13 10/17/2021 16:18:36 Removal of intrauterine device 31128806 Z30.432 It was explained that she may have bleeding or spotting after the removal of the device today as well. If cannot see the strings of this device we will need to get an US image to make that the device is still in place and not in an unobtainab le position. She expressed understand ing of all the above instructio ns.See procedure notes Reproducti ve care management 694038864 Z31.9 Hx updatedUp to date on WWE/Pap smearNo complaints Discussed preconcept ion expectatio ns & starting PNV.Declin ed any other testing needed today. Time spent in visit is a total of 30 mins with at least 50% of visit consisting of counseling and review of plan of care not including time spent on procedure. [id number] Geoff Daniels MD [place] [address],[place] [address] 02/14/2022 17:11:04 02/14/2022 18:19:42 [id number] [facility] [address],[place] [address] 02/14/2022 18:39:48 02/16/2022 14:37:48 [id number] Geoff Daniels MD [place] [address],[place] [address] 03/19/2022 09:19:05 03/19/2022 10:13:22 screening 514540346 Z36.82 [id number] Geoff Daniels MD [place] [address],[place] [address] 03/19/2022 09:22:17 03/20/2022 13:47:20 Routine care 637859909 Z34.91 [id number] [facility] [address],[place] [address] 04/16/2022 10:02:41 04/16/2022 11:13:11 Routine care 375316118 Z34.92 [id number] Yasmin Santana MD [place] [address],[place] [address] 05/14/2022 13:44:26 05/14/2022 15:01:45 screening for malformation 761131731 Z36.3 [id number] Yasmin Santana MD [place] [address],[place] [address] 05/14/2022 13:44:49 05/15/2022 11:01:09 Routine care 186120741 Z34.82 Candidiasis of vulva 108 [address]6 B37.[id number] [facility] [address],[place] [address] 06/13/2022 10:09:22 06/13/2022 10:53:04 Routine care 991741136 Z34.[id number] [facility] [address],[place] [address] 07/11/2022 10:00:29 07/11/2022 12:17:23 Routine care 484250549 Z34.92 [id number] Yasmin Santana MD [place] [address],[place] [address] 07/24/2022 15:12:58 07/24/2022 15:55:21 Routine care 755013447 Z34.82 Uterine si ze for dates discrepancy 811737442 O26.[id number] [facility] [facility] [address],[place] [address] 08/08/2022 13:58:22 08/08/2022 15:00:15 Routine care 557472178 Z34.[id number] [facility] [address],[place] [address] 08/24/2022 15:58:39 08/24/2022 17:29:54 Routine care 969853390 Z34.92 [id number] MD Nae Mirza [address],[place] [address] 08/24/2022 15:58:57 08/24/2022 17:30:14 Uterine size for dates discrepancy 075131353 O26.849 Z3A.35 [id number] [facility] [address],[place] [address] 08/31/2022 15:44:28 08/31/2022 16:50:51 Routine care 069842423 Z34.92 [id number] MD Nae Mirza [address],[place] [address] 08/31/2022 15:46:00 08/31/2022 16:42:36 Polyhydramnios 86178082 O40.3XX0 [id number] MD Nae Mirza [address],[place] [address] 08/31/2022 15:46:36 08/31/2022 17:16:42 Polyhydramnios 11431751 O40.3XX0 Z3A.36 [id number] [facility] [address],[place] [address] 09/07/2022 14:50:15 09/07/2022 15:17:12 Routine care 621030414 Z34.92 [id number] MD Nae Mirza [address],[place] [address] 09/14/2022 14:26:22 09/14/2022 15:00:21 Polyhydramnios 75003002 O40.3XX0 Z3A.36 [id number] MD Nae Mirza [address],[place] [address] 09/14/2022 14:26:36 09/14/2022 15:39:34 Polyhydramnios 18407622 O40.3XX0 Z3A.[id number] [facility] [address],[place] [address] 09/14/2022 14:26:53 09/18/2022 10:28:24 Routine care 948446366 Z34.92 [id number] Geoff Daniels MD [place] [address],[place] [address] 09/19/2022 10:26:44 09/19/2022 11:36:19 Routine care 657501476 Z34.91 Z3A.[id number] [facility] [address],[place] [address] 09/19/2022 10:27:24 09/19/2022 11:13:45 Routine care 846235974 Z34.92 [id number] Geoff Daniels MD [place] [address],[place] [address] 09/26/2022 15:58:44 09/26/2022 16:44:45 Polyhydramnios 71584389 O40.3XX0 Z3A.38 [id number] Geoff Daniels MD [place] [address],[place] [address] 09/26/2022 15:59:44 09/26/2022 17:43:31 malposition and malpresentation 317521543 O32.0XX0 O40.3XX0 Z3A.[id number] [facility] [address],[place] [address] 09/26/2022 16:00:28 09/26/2022 18:46:01 Routine care 023960174 Z34.[id number] [facility] [facility] [address],[place] [address] 10/31/2022 15:57:26 10/31/2022 16:26:21 care 921038992 Z39.2 normal visit call if anxiety worsens f/u wwe 06/04 [id number] PIEDAD Morales [facility] [address] [address] 05/28/2023 16:27:00 05/28/2023 17:24:20 Gynecologic examination 88342328 Z01.419 Z11.51 WWEBC - withdrawal pap updateddec lined STI screen Take Calcium with Vitamin D daily if not receiving in daily diet.It is strongly advised to have an annual flu shot and up can obtain at most pharmacies . If you have not had a TDap shot in the last 10 years you should obtain one as well. Discussed with patient & provided with informatio n regarding Gardisil vaccine to prevent the 4 strains for HPV that cause cervical cancer if under age 26.Encoura ge safe sexual practices, to use condoms and limit partners if not already in a monogamous relationsh ip.Do monthly self breast exams. BRCA testing is now available for patients with strong genetic history of female cancer. If interested contact the office. Engage in regular exercise. Avoid tobacco and illicit drugs. This lifestyle behavior pattern will lead to less health conditions and longer life span. If BMI greater than 25 weight watchers or dietary consult advised. Patient received above instructio ns, and questions have been answered. If you have any questions please call or respond to this email. Patient was made aware of the patient portal and may obtain a paper copy of today's plan if desired. Contracept ion care management 113445201 Z30.9 Discussed all progestero ne only BC methods (breastfefilemon aburto)she is going to consider her options and let us know if she decides on a methodronnie tisaurabh answered, r/b/a reviewed [id number] PIEDAD Morales [facility] [address] [address] 09/24/2023 14:54:58 09/24/2023 15:26:57 Insertion of intrauterine contraceptive device 76726957 Z30.430 Pt desired Mirena IUD insertionr /b/a reviewedUP T (-), gc/ct/tric h testing sentMirena IUD inserted (see procedure note)preca utions discussed, questions answeredRT C for string check in 4-6 weeks Contracept ion care management 643302972 Z30.9 Venereal d isease screening 218740376 Z11.3 [id number] Fabi Brewer DANUTA [facility] [address],[place] [address] 09/07/2024 15:32:45 09/07/2024 16:19:36 Acute vaginitis 71202270 N76.0 [id number] vaginitis/ STI panel sentvulvar care guidelines discussedR x sent for BV, r/b/a reviewed Venereal d isease screening 816567978 Z11.3 86067 Intrauteri ne contraceptive device in situ 804221964 Z30.431 [id number] Pelvic u/s ordered for IUD check Time spent in visit is a total of 22 mins with at least 50% of visit consisting of counseling and review of plan of care. [id number] Geoff Daniels MD [facility] [address],[place] [address] 09/16/2024 16:55:59 09/17/2024 09:14:54 Disorder of intrauterine contraceptive device 321119701 T83.39XA [id number] Fabi Brewer [place] [address],[place] [address] 09/17/2024 16:06:47 09/21/2024 07:58:42 Gynecologic examination 09481287 Z01.419 Z11.51 WWEPap - done todaySTI screen - declinedRo utine labs -PCPRTC in 1 yr or sooner if needed It is strongly advised to have an annual flu shot and up can obtain at most pharmacies . If you have not had a TDap shot in the last 10 years you should obtain one as well. Discussed with patient & provided with informatio n regarding the HPV vaccine if applicable . Encourage safe sexual practices, to use condoms and limit partners if not already in a monogamous relationsh ip. Do monthly self breast exams. BRCA testing is now available for patients with strong genetic history of female cancer. If interested contact the office. Engage in regular exercise. Avoid tobacco and illicit drugs. This lifestyle behavior pattern will lead to less health conditions and longer life span. If BMI greater than 25 dietary consult advised. Questions answered. Malpositio n of intrauterine contraceptive device [id number] 0786964 T83.32XA [id number] Reviewed recent u/s , scheduled for MD consult to discuss hysterosco py IUD removal/re placementd [place]ussed [place] [id number] SREE PRATT MD [place] [address] [address] 10/09/2024 13:47:04 10/09/2024 14:58:56 Malposition of intrauterine contraceptive device [id number] T83.32XD [id number] - IUD malpositio hussain, strings not visualized - recommend hysterosco pic IUD removal and reinsertio n of Mirena IUD- discussed risks of surgery, including bleeding, infection, and injury to adjacent structures - patient would like to proceed with hysterosco py and IUD removal/re insertion Cervical atypism [id number] R87.610 [id number] - ASCUS neg HPV this year, MILN/+HPV last year- discussed option of expectant management with pap in 1 year vs colposcopy at time of hysterosco py- also recommend gardasil vaccine and smoking cessation- patient would like expectant management at this time [id number] SREE PRATT MD [place] [address] [address] 10/28/2024 09:42:12 10/28/2024 12:39:31 Contraception status [id number] Z30.704 [id number] - Mirena IUD removed and reinserted without issue- due for removal 10/2032- rtc 1 month for string check [id number] SREE PRATT MD [place] [address] [address] 11/27/2024 15:43:35 11/27/2024 16:21:12 Painless rectal bleeding [id number] K62.5 [id number] - reports rectal bleeding during periods, does not have bleeding outside of periods- hx of stage I endometrio sis- recommend colonoscop y referral prior to diagnostic laparoscop y to evaluate for colonic/re ctal disease Intrauteri ne contraceptive device in situ [id number] Z30.431 [id number] - Mirena IUD placed 10/28, due for removal 10/2032- no issues at this time Health Concerns Section Related Observation LastModified by Organization Detai ls LastModified Time None Recorded Concern Status LastModified by Organization Details LastModified Time None Recorded Advance Directives Directive N: Payers Insurance Date Sequence Insurance Name Policy Number Policy Mendoza Covered Member ID Mendoza Member ID Guarantor Name 11/30/2024 1 [place] [id number] Jovita Gamboa [id number] Jovita Gamboa Notes Date Note Type Note Provider Name and Address Organization Details Recorded Time 5 text/html Annual GYNReported by PatientGenitourinary symptomsFor menstrual cycle, patient reportsnormal menses. For urinary symptoms, patient reportsno hematuriaandno incontinence. For vulva, patient reportsno genital lesion. For vagina, patient reportsnormal vaginal discharge.Breast symptomsFor breast, patient reportsno breast pain,no breast lump, andno nipple discharge.ContraceptionFo r current contraception, patient reportsintrauterine device (iud).Endocrine symptomsFor sexual complaints, patient reportsno sexual complaints,no pain during intercourse, andnormal libido. For menopausal symptoms, patient reportsno menopausal symptomsandnormal vaginal lubrication.Psychological symptomsFor psychological symptoms, patient reportsno depression,no anxiety, andno pmdd.Preventative measuresFor preventive measures, patient reportsencourage self breast examination,encourage regular exercise,encourage no tobacco use, andencourage regular mammograms starting age 40.34yo [facility] - Mirena IUD. U/s done 09/16/2024 d/t non-visualized strings, IUD rotated on u/slast pap 05/2023 nilm, HPV (+) PIEDAD Morales [address], [place], [address], [facility] 09/19/2024 21:45:51 5 text/html Patient presents for surgical consult for malpositioned IUD. Strings were not visualized on pelvic exam previously and pelvic US showed IUD in the uterus however malpositioned with stem in left cornua. She is also concerned about her abnormal pap smear. She has a history of NILM/+HPV in 2023 and now ASCUS/neg HPV in 2024. Hx of colposcopy years ago with normal biopsies. SREE PRATT MD [address], [place], [address], [facility] 10/09/2024 14:55:17 5 text/html ROS as noted in the HPI Patient presents for hysteroscopic IUD removal and reinsertion due to malpositioned IUD. Josseline boo, [facility] 10/28/2024 14:23:29 5 text/html ROS as noted in the HPI [...] further evaluation. SREE PRATT MD [address], [place], [address], [facility] 11/27/2024 16:15:04 OBGyn Episode Ob Episode Information Episode Created Date Number of Fetuses Patient Bloodtype Patient rh Status Prepregnancy Weight lbs Domestic Partner Domestic Partner Phone Father Name Sound Recording Technician Status 10/18/19 22 1 CLOSED Fetus Data First Name Last Name Admitted to NICU Weight (g) Sex Living Outcome Pediatric Complications Fetus ID Race Codes Race Delivery Type 4195.72 6 M Full Term [id number] Vaginal Delivery Jakub Calculation Initial Jakub Date Initial Exam Date Initial Exam Provider Initial Ultrasound Date Last Menstrual Period Date Ultra Sound Weeks Gestation 0 Eighteen To Twenty Week Jakub Update Ultra Sound Date Fundal Height At Umbil Quickening Date Ultra Sound Latest Weeks Gestation Final Jakub Confirmed By Final Jakub Confirmed Date Final Jakub Date Ultra Sound Latest Days Gestation 0 0 Menstrual History Last Menstrual Date Menses Monthly On Bcp Conception Prior Menses Frequency Hcg Plus Date Menarche Onset Age Delivery Information Delivery Date Delivery Type Labor Anesthesia Weeks Gestation Incision Type Labor Labor Length Hrs Delivered By Post Complications Tubal Sterilization Discharge Date Comments 2 40 Discharge Information Feeding Method Contraceptive Method Maternal HG B and HCT Levels Ob Episode Information Episode Created Date Number of Fetuses Patient Bloodtype Patient rh Status Prepregnancy Weight lbs Domestic Partner Domestic Partner Phone Father Name Sound Recording Technician Status 03/19/19 23 1 B Positive 185 CLOSED Fetus Data First Name Last Name Admitted to NICU Weight (g) Sex Living Outcome Pediatric Complications Fetus ID Race Codes Race Delivery Type Jhon ronquillo 3373.59 05 F true Full Term [id number] Vaginal Delivery Problems Problem Notes 09/05/22 130 [facility] NST/BP P/ Consult to discuss delivery recommendations GOYO 38 Problem Name Start Date End Date Resolution Snomed Code Not e Abnormal cervical Papanicolaou smear [id number] recent - had one normal follow up pap in June 02 Depressive disorder [id number] want to observe - dc'd tx Genital herpes simplex 09279922 1 & 2 - to reci clint prophlaxis Uterine size for dates discrepancy 038848558 Ultrasound scan abnormal [id number] EIF- repeat US 28w x1 Polyhydramnios 05093377 GOYO 4 2 per Maryuri MF 08/29 GOYO 38 - to schedule consult for delivery rec SB informed- [facility] 09/05 1:30 NST/BPP & Consult for delivery recommendations Jakub Calculation Initial Jakub Date Initial Exam Date Initial Exam Provider Initial Ultrasound Date Last Menstrual Period Date Ultra Sound Weeks Gestation 09/26/2022 03/19/2022 02/14/2022 12/20/2021 8 Eighteen To Twenty Week Jakub Update Ultra Sound Date Fundal Height At Umbil Quickening Date Ultra Sound Latest Weeks Gestation Final Jakub Confirmed By Final Jakub Confirmed Date Final Jakub Date Ultra Sound Latest Days Gestation 0 [email or web address] 03/19/2022 09/27/19 23 0 Pre- Flowsheet Flowsheet Date 03/19/2022 Orantes Score Blood Edema Fundus Height Fundus Units Glucose Ketones Leukocytes Nitrite Labor Signs Protein Cervic Dilation Cervic Effacement Cervic Station 12 Type Weight in lbs Pre/Post Dialysis Refused Weight 189.493068463383 BP Diastolic BP Location Tested BP Systolic BP Type 73 R arm 113 sitting Fetus Heart Rate Present A 145 Fetus Movement Comments This patient is a 34-year-ol d 2 para 1001 at 12 weeks gestation who presents for initial care. She had a normal genetic screening ultrasound today. She has had genetic screening from maternal blood. NIPT was normal. She is vaccinated for COVID. She is vaccinated for flu. She was given Tdap recommendation. We talked about care in detail. She does have herpes and depression. She is not taking any depression medication. She was asked to monitor symptoms and report to me any depression symptoms. We agreed to prophylax in the 3rd trimester for the end of for the herpes HSV type 1. She will begin routine care. Flowsheet Date 04/16/2022 Orantes Score Blood Edema Fundus Height Fundus Units Glucose Ketones Leukocytes Nitrite Labor Signs Protein Cervic Dilation Cervic Effacement Cervic Station neg none none trace Type Weight in lbs Pre/Post Dialysis Refused Weight 191.414589285821 BP Diastolic BP Location Tested BP Systolic BP Type 55 120 Fetus Heart Rate Present A 150 Fetus Movement A Yes Comments Doing well. Constipation. Di scussed relief measures. Plan to return in 3-4 weeks for routine visit and baseline anatomy. Having a girl Juniper. Her son calls the baby peanut. Flowsheet Date 05/14/2022 Orantes Score Blood Edema Fundus Height Fundus Units Glucose Ketones Leukocytes Nitrite Labor Signs Protein Cervic Dilation Cervic Effacement Cervic Station Type Weight in lbs Pre/Post Dialysis Refused BP Diastolic BP Location Tested BP Systolic BP Type Fetus Heart Rate Present Fetus Movement Comments Flowsheet Date 05/14/2022 Orantes Score Blood Edema Fundus Height Fundus Units Glucose Ketones Leukocytes Nitrite Labor Signs Protein Cervic Dilation Cervic Effacement Cervic Station neg none none trace Type Weight in lbs Pre/Post Dialysis Refused Weight 193.24417636211 BP Diastolic BP Location Tested BP Systolic BP Type 73 112 Fetus Heart Rate Present A 160 Fetus Movement A Yes Comments Doing well except vulvar itc shanel last 3 weeks, no discharge. diflucan x1, call if not resolved in 5-[address] [facility] wilbert anatomy complete and wnl, EIF prsent, discussed and reassured. Flowsheet Date 06/13/2022 Orantes Score Blood Edema Fundus Height Fundus Units Glucose Ketones Leukocytes Nitrite Labor Signs Protein Cervic Dilation Cervic Effacement Cervic Station neg none none trace Type Weight in lbs Pre/Post Dialysis Refused Weight 200.746082100517 BP Diastolic BP Location Tested BP Systolic BP Type 70 120 Fetus Heart Rate Present A 145 Fetus Movement A Yes Comments patient is having pain, swel ling, and nausea. reviewed normal sxs, worried about weight, walking daily, disc increase protein to stay kumar longer, healthy snacks, increase hydration, f/u 4 weeks with GCT, precautions reviewed Flowsheet Date 07/11/2022 Orantes Score Blood Edema Fundus Height Fundus Units Glucose Ketones Leukocytes Nitrite Labor Signs Protein Cervic Dilation Cervic Effacement Cervic Station neg trace 30 none trace Type Weight in lbs Pre/Post Dialysis Refused Weight 204.322893242163 BP Diastolic BP Location Tested BP Systolic BP Type 77 119 Fetus Heart Rate Present A 145 Fetus Movement A Yes Comments patient states that having B H contractions, swelling, nausea and vomiting. reviewed PTL precautions, education done, ok for tdap, doing GCT today Flowsheet Date 07/24/2022 Orantes Score Blood Edema Fundus Height Fundus Units Glucose Ketones Leukocytes Nitrite Labor Signs Protein Cervic Dilation Cervic Effacement Cervic Station neg trace 35 none trace Type Weight in lbs Pre/Post Dialysis Refused Weight 206.818638113222 BP Diastolic BP Location Tested BP Systolic BP Type 75 123 Fetus Heart Rate Present A 130 Fetus Movement A Yes Comments Doing well. Taking iron. GCT wnl. Will do Tdap. S>D, will do growth US. Flowsheet Date 08/08/2022 Orantes Score Blood Edema Fundus Height Fundus Units Glucose Ketones Leukocytes Nitrite Labor Signs Protein Cervic Dilation Cervic Effacement Cervic Station neg none 33 none trace Type Weight in lbs Pre/Post Dialysis Refused Weight 208.423235291170 BP Diastolic BP Location Tested BP Systolic BP Type 75 117 Fetus Heart Rate Present A 133 Fetus Movement A Yes Comments patient states that having s ome BH contractions, discharge, pressure and swelling. education done, ptl precautions, tdap complete, ok to make preadmission appt has us f/u next visit Flowsheet Date 08/24/2022 Orantes Score Blood Edema Fundus Height Fundus Units Glucose Ketones Leukocytes Nitrite Labor Signs Protein Cervic Dilation Cervic Effacement Cervic Station Type Weight in lbs Pre/Post Dialysis Refused BP Diastolic BP Location Tested BP Systolic BP Type Fetus Heart Rate Present Fetus Movement Comments Flowsheet Date 08/24/2022 Orantes Score Blood Edema Fundus Height Fundus Units Glucose Ketones Leukocytes Nitrite Labor Signs Protein Cervic Dilation Cervic Effacement Cervic Station neg trace none trace Type Weight in lbs Pre/Post Dialysis Refused Weight 212.52260002872 BP Diastolic BP Location Tested BP Systolic BP Type 75 119 Fetus Heart Rate Present Fetus Movement A Yes Comments patient is having pain, cont ractions, discharge and swelling. GOYO 42, [facility] spoke to [facility] and pt to see them next week, per dr daniels hga1c here today, bpp 09/18, pt to go to [facility] for NST. plan weekly testing, gbs done, precautions reviewed Flowsheet Date 08/31/2022 Orantes Score Blood Edema Fundus Height Fundus Units Glucose Ketones Leukocytes Nitrite Labor Signs Protein Cervic Dilation Cervic Effacement Cervic Station neg trace none trace Type Weight in lbs Pre/Post Dialysis Refused Weight 212.97349131028 BP Diastolic BP Location Tested BP Systolic BP Type 75 127 Fetus Heart Rate Present Fetus Movement A Yes Comments patient is having contractio ns, discharge, swelling and nausea. FT/soft, bpp today reviewed precautions saw [facility]fm appt next week for delivery rec Flowsheet Date 08/31/2022 Orantes Score Blood Edema Fundus Height Fundus Units Glucose Ketones Leukocytes Nitrite Labor Signs Protein Cervic Dilation Cervic Effacement Cervic Station Type Weight in lbs Pre/Post Dialysis Refused BP Diastolic BP Location Tested BP Systolic BP Type Fetus Heart Rate Present Fetus Movement Comments Flowsheet Date 08/31/2022 Orantes Score Blood Edema Fundus Height Fundus Units Glucose Ketones Leukocytes Nitrite Labor Signs Protein Cervic Dilation Cervic Effacement Cervic Station Type Weight in lbs Pre/Post Dialysis Refused BP Diastolic BP Location Tested BP Systolic BP Type Fetus Heart Rate Present Fetus Movement Comments Flowsheet Date 09/07/2022 Orantes Score Blood Edema Fundus Height Fundus Units Glucose Ketones Leukocytes Nitrite Labor Signs Protein Cervic Dilation Cervic Effacement Cervic Station neg trace 43 none trace 1cm 60% -3 Type Weight in lbs Pre/Post Dialysis Refused Weight 211.878107760736 BP Diastolic BP Location Tested BP Systolic BP Type 72 120 Fetus Heart Rate Present A 144 Fetus Movement A Yes Comments patient states that having c ontractions, cramping, discharge, swelling and nausea. saw [facility]fm rec iol around 39 weeks, pt wants to do membrane sweep at next visit wants to more natural approach, education and precautions, if water breaks go in, plan us for presentation Flowsheet Date 09/14/2022 Orantes Score Blood Edema Fundus Height Fundus Units Glucose Ketones Leukocytes Nitrite Labor Signs Protein Cervic Dilation Cervic Effacement Cervic Station Type Weight in lbs Pre/Post Dialysis Refused BP Diastolic BP Location Tested BP Systolic BP Type Fetus Heart Rate Present Fetus Movement Comments Flowsheet Date 09/14/2022 Orantes Score Blood Edema Fundus Height Fundus Units Glucose Ketones Leukocytes Nitrite Labor Signs Protein Cervic Dilation Cervic Effacement Cervic Station Type Weight in lbs Pre/Post Dialysis Refused BP Diastolic BP Location Tested BP Systolic BP Type Fetus Heart Rate Present Fetus Movement Comments Flowsheet Date 09/14/2022 Orantes Score Blood Edema Fundus Height Fundus Units Glucose Ketones Leukocytes Nitrite Labor Signs Protein Cervic Dilation Cervic Effacement Cervic Station neg trace none trace Type Weight in lbs Pre/Post Dialysis Refused Weight 214.056601407899 BP Diastolic BP Location Tested BP Systolic BP Type 78 123 Fetus Heart Rate Present Fetus Movement A Yes Comments patient is having some swell ing and contractions. reviewed precautions, GOYO 30 cm and fetus transverse, discussed options, ?versio with induction, labor on own, pt would like to wait, plan us for next sat, if water breaks discussed possible cord prolapse, emergency situation go to hospital immediately Flowsheet Date 09/19/2022 Orantes Score Blood Edema Fundus Height Fundus Units Glucose Ketones Leukocytes Nitrite Labor Signs Protein Cervic Dilation Cervic Effacement Cervic Station Type Weight in lbs Pre/Post Dialysis Refused BP Diastolic BP Location Tested BP Systolic BP Type Fetus Heart Rate Present Fetus Movement Comments Flowsheet Date 09/19/2022 Orantes Score Blood Edema Fundus Height Fundus Units Glucose Ketones Leukocytes Nitrite Labor Signs Protein Cervic Dilation Cervic Effacement Cervic Station neg trace none trace Type Weight in lbs Pre/Post Dialysis Refused Weight 210.863268068573 BP Diastolic BP Location Tested BP Systolic BP Type 76 118 Fetus Heart Rate Present Fetus Movement A Yes Comments patient is having some contr actions, discharge, and swelling. still feeling large movements, +FHR on US, transverse, large fluid pockets, pt decline version wants to wait to see if baby will move vertex for labor, wondering if leaking . once in a while underwear wet, not constant, rec pt to go to LD to get tested for rupture, pt declined discussed risk of infection if ruptured. precautions reviewed. to ld immediately in labor/rupture. did not get valtrex at 36 weeks to start now Flowsheet Date 09/26/2022 Orantes Score Blood Edema Fundus Height Fundus Units Glucose Ketones Leukocytes Nitrite Labor Signs Protein Cervic Dilation Cervic Effacement Cervic Station Type Weight in lbs Pre/Post Dialysis Refused BP Diastolic BP Location Tested BP Systolic BP Type Fetus Heart Rate Present Fetus Movement Comments Flowsheet Date 09/26/2022 Orantes Score Blood Edema Fundus Height Fundus Units Glucose Ketones Leukocytes Nitrite Labor Signs Protein Cervic Dilation Cervic Effacement Cervic Station Type Weight in lbs Pre/Post Dialysis Refused BP Diastolic BP Location Tested BP Systolic BP Type Fetus Heart Rate Present Fetus Movement Comments Flowsheet Date 09/26/2022 Orantes Score Blood Edema Fundus Height Fundus Units Glucose Ketones Leukocytes Nitrite Labor Signs Protein Cervic Dilation Cervic Effacement Cervic Station neg trace none trace Type Weight in lbs Pre/Post Dialysis Refused Weight 210.892380050373 BP Diastolic BP Location Tested BP Systolic BP Type 82 130 Fetus Heart Rate Present Fetus Movement A Yes Comments patient is having some contr actions, discharge and swelling. outer os of cervix 3 cm, US shows poly at 30 cm, with transverse lie efw 8 lb 5 oz, discussed ECV with/without terbutaline, disc risks including not working, placental abruption, cord prolapse. plan would be to do ECV and then preform an amniotomy. reviewed with dr daniels and will plan for saturday at 0630 Menstrual History Last Menstrual Date Menses Monthly On Bcp Conception Prior Menses Frequency Hcg Plus Date Menarche Onset Age 1112/20/2021 Genetic Screening And Infection History Question Response Note Mental Retardation/Autism false Patient's Age Will Be 35 Yea rs Or Older At Estimated Date of Delivery false Thalassemia (Pashto, Bulgarian, Mediterranean, Or Background): MCV < 80 false Neural Tube Defect (Meningom yelocele, Spina Bifida, Or Anencephaly) false Congenital Heart Defect false Down Syndrome false Ck-Sachs (eg, Yarsanism, Cajun, Sinhala-[place]) f alse Nelly Disease false Sickle Cell Disease Or Trait () false Hemophilia Or Other Blood Disorders false Muscular Dystrophy false Cystic Fibrosis false Serge's Chorea false Intellectual Disability/Autism false If Yes, Was Person Tested For Fragile X? false Other Inherited Genetic Or Chromosomal Disorder false Maternal Metabolic Disorder (eg, Type 1 Diabetes , PKU) false Patient Or Baby's Father Had A Child With Defects Not Listed Above false Recurrent Loss, Or A Stillbirth false Medications (including Suppl ements, Vitamins, Herbs, OTC Drugs), Illicit/Recreational Drugs, Alcohol false If Yes, Agent(s) And Strength/Dosage false Any Other Genetic History false Live With Someone With TB Or Exposed To TB false Patient Or Partner Has History Of Genital Herpes true Yes - to prophlax Rash Or Viral Illness Since Last Menstrual Perio d false History Of STD, Gonorrhea, Chlamydia, HPV, Syphi lis true herpes 1 & 2 Other Infection History false History of HIV false History of Hepatitis false Prior GBS-infected child false Hemoglobinopathy Or Carrier false Other Structural Defect false Recent Travel History Outside of Country false Delivery Information Delivery Date Delivery Type Labor Anesthesia Weeks Gestation Incision Type Labor Labor Length Hrs Delivered By Post Complications Tubal Sterilization Discharge Date Comments 3 Induce d Regional-Ep idural 40.2 false Tootie Rodriguez CNM Genital herpes simplex, Polyhydra mnios Discharge Information Feeding Method Contraceptive Method Maternal HG B and HCT Levels
--- OUTSIDE RECORDS SUMMARY | 2025-01-19 02:24 | XMS_ITS | Encounter Summary ---
Author Organization [facility] Address [address] [place] [address] Care Team Providers Care Shank Maker Name Role Phone Ally Barajas PA-C Primary Care Provider [phone] Ramsey Mccann ENTRY LEVEL SALES CONSULTANT Unavailable [phone] Encounter Details Date Type Department Care Team (Late st Contact Info) Description 09/28/2021 [facility] [address] [place] [id number] Ally Barajas PA-C [address] [place] [address] Question regarding HERPES SIMPLEX VIRUS IGG Social [...] Master's degree (e.g., MA, MS, Monster, MEd, CASTING TRUCKER, RODRIGO) 01/03/2021 Comments No Sex and Gender Information Value Date Recorded Sex Assigned at Female 03/20/2024 1:48 PM LARRIMAN HELPER Legal Sex Female 8:31 PM CDT Gender [...] documented as of this encounter Care Teams Shank Maker Relationship Specialty Start Date End Date Ally Barajas PA-C [address] [place] [address] PCP - General PHYSICIAN SADDLE MECHANIC 05/06/19 Ramsey Mccann, ENTRY LEVEL SALES CONSULTANT [address] [place] [address] Nurse Practitioner Women's Health 08/30/21 documented as of this encounter
--- OUTSIDE RECORDS SUMMARY | 2025-01-19 02:24 | XMS_ITS | Encounter Summary ---
Author Organization [facility] Address [address] [place] [address] Care Team Providers Care Animal Ride Attendant Name Role Phone Ally Barajas PA-C Primary Care Provider [phone]- [phone] Ramsey Mccann NURSE TRANSITION Unavailable [phone] Encounter Details Date Type Department Care Team (Late st Contact Info) Description 08/21/2021 [facility] [address] [place] [id number] Ally Barajas PA-C [address] [place] [address] Medication for anxiety Social History Tobacco Use [...] Master's degree (e.g., MA, MS, Monster, MEd, STEEL WOOL MACHINE OPERATOR, RODRIGO) 01/03/2021 Comments No Sex and Gender Information Value Date Recorded Sex Assigned at Female 03/20/2024 1:48 PM PICTURES EDITOR Legal Sex Female 8:31 PM CDT Gender [...] PM CDT [place] Active * [place] Suicide Severity Rating Scale (Screener/Recent Self-Report) Question [...] documented as of this encounter Care Teams Animal Ride Attendant Relationship Specialty Start Date End Date Ally Barajas PA-C [address] [facility] [address] [place] [address] PCP - General PHYSICIAN COMPUTER EDUCATION PROFESSOR 05/06/19 Ramsey Mccann, NURSE TRANSITION [address] [address] Nurse Practitioner Women's Health 08/30/21 documented as of this encounter
--- OUTSIDE RECORDS SUMMARY | 2025-01-19 02:24 | XMS_ITS | Encounter Summary ---
Author Organization [facility] Address [address] [place] [address] Care Team Providers Care Portfolio Manager Name Role Phone Ally Barajas PA-C Primary Care Provider [phone] Ramsey Mccann SENIOR TAX ACCOUNTANT Unavailable [phone] Encounter Details Date Type Department Care Team (Late st Contact Info) Description 06/19/2021 [facility] [address] [place] [id number] Ally Barajas PA-C [address] [place] [address] Ear Infection Social History Tobacco Use Types [...] Master's degree (e.g., MA, MS, Monster, MEd, JIG GRINDER, RODRIGO) 01/03/2021 Comments No Sex and Gender Information Value Date Recorded Sex Assigned at Female 03/20/2024 1:48 PM STEVEDORING SUPERVISOR Legal Sex Female 8:31 PM CDT [...] documented as of this encounter Care Teams Portfolio Manager Relationship Specialty Start Date End Date Ally Barajas PA-C [address] [facility] [address] [place] [address] PCP - General PHYSICIAN APPLICATIONS PROCESSOR 05/06/19 Ramsey Mccann, SENIOR TAX ACCOUNTANT [address] [facility] [address] [place] [address] Nurse Practitioner Women's Health 08/30/21 documented as of this encounter
--- OUTSIDE RECORDS SUMMARY | 2025-01-19 02:24 | XMS_ITS | Clinical Summary ---
Author Organization [facility] Address [address] [place] [address] Care Team Providers Care Warp Clamper Name Role Phone Ally Barcenas PA-C Primary Care Provider [phone] Ramsey Mccann PROFESSOR OF MUSICOLOGY Unavailable [phone] Allergies Active Allergy Reactions Criticality Noted Date Comments Doxycycline Myalgias 09/06/2021 And arthralgias, weakly elevated histone ab and dsdna ab. Medications Vit-Fe Fumarate-FA ( 1+1 OR) daily. Active levonorgestrel (MIRENA, 52 MG,) 20 MCG/DAY IUD 1 Intra Uterine Device by Intrauterine route once. 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 Overview (09/25/2021): pos antibody screen Sacroiliitis 01/03/2021 Generalized anxiety disorder 10/07/2020 Pelvic pain 07/06/2020 Perineal neuralgia Resolved Problems Problem Noted Date Diagnosed Date Resolved Date No known health problems 11/16/201312/2019 Encounters Date Type Department Care Team Description 10/28/2024 Scan [facility] SRVCS Scanned, [facility] Image (SCAN) from Last 3 Months Immunizations Immunization Administration Dates Next Due Dtap [...] Master's degree (e.g., MA, MS, Monster, MEd, CATERING DIRECTOR, RODRIGO) 01/03/2021 Comments No Sex and Gender Information Value Date Recorded Sex Assigned at Female 03/20/2024 1:48 PM FILLER BLOCK INSERTER REMOVER Legal Sex Female 8:31 PM CDT Gender Identity Not on file Sexual Orientation Not on file Occupation Industry Job Start Date Job End Date Not on file Not on file Not on file Not on file Last Filed Vital Signs Vital Sign Reading Time Taken Comments Blood Pressure 105/68 03/20/2024 1:57 PM FILLER BLOCK INSERTER REMOVER Pulse 75 03/20/2024 1:57 PM FILLER BLOCK INSERTER REMOVER Temperature 37.3 C (99.1 F) 03/20/2024 1:57 PM FILLER BLOCK INSERTER REMOVER Respiratory Rate 18 03/20/2024 1:57 PM FILLER BLOCK INSERTER REMOVER Oxygen Saturation 100% 03/20/2024 1:57 PM FILLER BLOCK INSERTER REMOVER Inhaled Oxygen Concentration - - Weight 61.7 kg (136 lb 2 oz) 03/20/2024 1:57 PM FILLER BLOCK INSERTER REMOVER Height 157.5 cm (5' 2) 03/20/2024 1:57 PM FILLER BLOCK INSERTER REMOVER Body Mass Index 24.9 03/20/2024 1:57 PM FILLER BLOCK INSERTER REMOVER Plan of Treatment Health Maintenance Due Date Last Done Comments HPV Vaccines (1 - 3-dose SCDM series) 01/26/2019 Annual Physical 06/09/2022 06/09/2021 PHQ-2 ([facility] [place]) 02/12/2024 COVID-19 Vaccine ( season) 2024 11/29/2021, 05/06/2020, 04/08/2020 Influenza Adult (#1) 2024 11/29/2021, 11/23/2020, 03/21/2019 Cervical Cancer Screening Pap with HPV Testing (Age 30 to 64) Every 5 Years 03/30/2025 03/30/2024, 05/28/2023, 05/28/2023, Additional history exists Cervical Cancer Screening with HPV 03/30/2025 Cervical Cancer Screening Pap Smear (Age 30 to 64) Every 3 Years 09/18/2027 09/17/2024, 09/24/2023, 05/28/2023, Additional history exists DTaP, Tdap and Td Vaccines (8 - Td or Tdap) 10/14/2031 10/13/2021, 01/31/2012, 05/29/1996, Additional history exists Hepatitis B Vaccines Completed 03/16/1993, 1992, 1992 Hepatitis C Completed 03/01/2022 Hepatitis A Vaccines Aged Out No long er eligible based on patient's age to complete this topic Meningococcal B Vaccine Aged Out No l [...] Procedure Name Priority Date/Time Associated Diagnosis Comments IMAGE GENERIC 10/28/2024 OUTSIDE CYTOPATH CERV/VAG INTERPRET (PAP) 03/30/2024 CYTOPATH CERV/VAG THIN LAYER Routine 06/09/2021 12:00 AM CDT Encounter for well woman exam with routine gynecological exam from Last 3 Months or Most Recently Relevant to Health Maintenance Results * IMAGE GENERIC (10/28/2024) Anatomical Region Laterality Modality Other 10/28/2024 [facility] Scanned SCANNING Final Resu lt * PAP SMEAR WITH HPV (03/30/2024) 03/30/2024 [facility] Scanned SCANNING Final Resu lt * Cytopath Cerv/Vag Thin Layer (06/09/2021 12:00 AM CDT) COPATH REPORT [place] [phone] Department of Pathology Pathology Report Addendum Gynecological Cytology Report Patient Name: BRONSON RODRIGUEZ : 1990 (Age: 31) Location: [facility] Gender: F Collected Date: 06/09/2021 Med Rec #: [id number] Date Received: 06/12/2021 Date Reported: Provider: ALLY BARCENAS PA-C Final Cytologic Diagnosis ABNORMAL RESULT Satisfactory for evaluation. Endocervical component present. ATYPICAL SQUAMOUS CELLS - UNDETERMINED SIGNIFICANCE (ASC-US) Bacterial Vaginosis Moderate Inflammation Present This case was signed out at [facility], [address] [place] [address]. Electronically Signed Out [facility] Procedures/Adden da Addendum Date Ordered: 06/19/2021 Status: Signed Out Date Complete: 06/19/2021 Date Reported: 06/19/2021 Addendum Diagnosis High-risk HPV mRNA E6/E7 by Aptima assay (performed at [facility]) is reported as DETECTED (see separate report for details) Reflex Genotyping for HPV 16 and 18/45 by Aptima assay (performed at [facility]) is reported as NOT DETECTED (see separate report for details) Source of Specimen(s) Cervical/Endocer vical - Thin Prep Clinical History Screening, last Pap not provided. Z01.419 Date of Last Menstrual Period: 05/23/2021 Billing Fee Code(s): A: [address] [facility] 06/09/2021 06/12/2021 6:5 3 AM CDT Comment:Cervical/Endocervica l - Thin Prep us Ally Barcenas PA-C PATHOLOGY/CYTOLOGY ORDERAB LES Final Result [facility] [address] [place] [address], [place] [phone] from Last 3 Months or Most Recently Relevant to Health Maintenance Insurance [facility] Advance Directives * Full Code (Latest Code Status on File) Date Activated Date Inactivated Comments 07/06/2020 2:15 PM 07/06/2020 5:37 PM Care Teams Warp Clamper Relationship Specialty Start Date End Date Ally Barcenas PA-C [address] [facility] [address] [place] [address] PCP - General PHYSICIAN HANDLE ATTACHER 05/06/19 Ramsey Mccann, PROFESSOR OF MUSICOLOGY [address] [facility] [address] [place] [address] Nurse Practitioner Women's Health 08/30/21
--- OUTSIDE RECORDS SUMMARY | 2025-01-19 02:24 | XMS_ITS | Encounter Summary ---
Author Organization [facility] Address [address] [place] [address] Care Team Providers Care Hand Plug Shaper Name Role Phone Ally Barajas PA-C Primary Care Provider [phone] Ramsey Mccann HEAVY DUTY TRUCK MECHANIC Unavailable [phone] Encounter Details Date Type Department Care Team (Late st Contact Info) Description 06/29/2020 Prep for Procedure [facility] [address] [place] [address] Nell Winter DO [address] [place] [address] Social History Tobacco Use Types [...] Sex Assigned at Female 03/20/2024 1:48 PM MATERIALS BRANCH CHIEF Legal Sex Female 8:31 PM CDT Gender [...] DETECTED NOT DETECTED 07/04/2020 1:01 PM CDT [facility] Comment: A Not Detected (negative) test result [...] providers and patients using the following websites: https://www.[employer].Tins.ly/home/Covid-19/HCP/Quest[facility]/fact- sheet.html https://www.[employer].Tins.ly/home/Covid-19/Patients/ QuestIVD/fact-sheet.html This test has been authorized by the FDA under an Emergency Use Authorization (EUA) for use by authorized laboratories. Due to the current public health emergency, [facility] is receiving a high volume of samples [...] about COVID-19 can be found at the [facility] website: www.[employer].Tins.ly/Covid19. Test performed at [facility] [place] [address] [place] [address] Director: DEQUAN HOOKS DO,MPH FIRST TEST YES 07/03/2020 8:48 AM CDT [facility] EMPLOYED IN HEALTHCARE NO 07/03/2020 8:48 AM CDT [facility] SYMPTOMATIC DEFINED BY CDC NO 07/03/2020 8:48 AM CDT [facility] DATE OF SYMPTOM ONSET UNKNOWN 07/03/2020 8:54 AM CDT [facility] HOSPITALIZATION STATUS NO 07/03/2020 8:48 AM CDT [facility] PATIENT IN ICU NO 07/03/2020 8:48 AM CDT [facility] RESIDENT OF [facility] NO 07/03/2020 8:48 AM CDT [facility] NOT 07/03/2020 8:48 AM CDT [facility] PATIENT'S RACE WHITE OR 07/03/2020 8:48 AM CDT [facility] ETHNICITY NONHISPANIC 07/03/2020 8:48 AM CDT [facility] SOURCE (QST) NASOPHARYNGEAL SWAB 07/03/2020 8:48 AM CDT [facility] NASOPHARYNGEAL SWAB / Unknown 07/03/2020 8:47 AM CDT us Nell Crystalch DO MICROBIOLOGY - GENERAL ORDE RABLES Final Result [facility] [address] [place] [address], [facility] [email or web address] [facility] [address] [place] [address], documented in this encounter Visit Diagnoses Diagnosis [...] documented as of this encounter Care Teams Hand Plug Shaper Relationship Specialty Start Date End Date Ally Barajas PA-C [address] [facility] [facility] [address] [place] [address] PCP - General PHYSICIAN STATUARY PAINTER 05/06/19 Ramsey Mccann, HEAVY DUTY TRUCK MECHANIC [address] [facility] [facility] [address] [place] [address] Nurse Practitioner Women's Health 08/30/21 documented as of this encounter
--- OUTSIDE RECORDS SUMMARY | 2025-01-19 02:24 | XMS_ITS | Encounter Summary ---
Author Organization [facility] Address Formerly [facility], [address] [place] [address] Care Team Providers Care Time Motion Analyst Name Role Phone Ally Barajas PA-C Primary Care Provider [phone] Ramsey Mccann GEOGRAPHIC INFORMATION SYSTEMS ANALYST Unavailable [phone] Encounter Details Date Type Department Care Team (Late st Contact Info) Description 05/15/2022 [facility] Patient Accounts [address] [place] [address] [facility] Provider Monthly Credit Card Payment Social History [...] Master's degree (e.g., MA, MS, Monster, MEd, FULLERETTE, RODRIGO) 01/03/2021 Comments Yes Sex and Gender Information Value Date Recorded Sex Assigned at Female 03/20/2024 1:48 PM FOAM FABRICATOR Legal Sex Female 8:31 PM CDT Gender [...] documented as of this encounter Care Teams Time Motion Analyst Relationship Specialty Start Date End Date Ally Barajas PA-C [address] [place] [address] PCP - General PHYSICIAN STEWARD DISHWASHER 05/06/19 Ramsey Mccann, GEOGRAPHIC INFORMATION SYSTEMS ANALYST [address] [facility] [address] [place] [address] Nurse Practitioner Women's Health 08/30/21 documented as of this encounter
--- OUTSIDE RECORDS SUMMARY | 2025-01-19 02:24 | XMS_ITS | Continuity of Care Document ---
Author Organization [facility] [place] Address [address] [place] [address] Care Team Providers Care Expense Clerk Name Role Phone JUVENTINO BARCENAS Primary Care Provider Assessment No assessment recorded. Plan of Treatment Reminders Order Date Submit Date Provider Last Modified By Organization Details Last Modified Time Details Appointments None recorded. Lab test, urine 2024 025 [email or web address] [facility], [address], [place], [address], 10:31:54 Referral None recorded. Procedures None recorded. Surgeries None recorded. Imaging None recorded. Medication Orders Mirena 21 mcg/24 hr (up to 8 years) 52 mg intrauterin e device 2024 025 [email or web address] Not available 14:24:57 Patient TargetsNo targets recorded. Patient InstructionsNo instructions recorded. Reason for Referral None Reported. Results Created Date Observation Date Name Description Value Unit Range Abnormal Flag Note LastModifiedBy Organization Detail LastModifiedTime 10/29/1910/28/2024 pregn jackson test, urine HCG negati ve Not Available [facility] [address], [place], [address], 10/28/2024 10:31:25 Result Notes None recorded. Problems Name Problem SNOMED Code Status Onset Date Resolution Date Notes Provider Name and Address Organization Details Recorded Time Abnormal cervical Papanico laou smear 022771672 Completed recent - had one normal follow up pap in June 02 Bhavesh boo, [facility] 3 17:05:41 Depressi ve disorder 21169155 Completed want to observe - [facility] 17:05:41 Genital herpes simplex 83875174 Completed 1 & 2 - to recieve prophlaxi s [facility] 3 17:05:41 Ultrasou nd scan abnormal 626228277 Completed EIF- repeat US 28w x1 Bhavesh Fuentes [facility] 3 17:05:41 Uterine size for dates discrepa ncy 503381347 Completed Bhavesh Fuentes [facility] 3 17:05:41 Polyhydr amnios 33664246 Completed GOYO 42 per Maryuri RAMIREZ 08/29 GOYO 38 - to schedule consult for delivery rec SB informed- [facility] 09/05 1:30 NST/BPP & Consult for delivery recommend ations Bhavesh Fuentes [facility] 3 17:05:41 Pregnanc y 40870007 Completed 202210/05/2022 Bhavesh Fuentes [facility] 3 17:05:48 Problem Notes None recorded. Procedures Surgical History Date Name Laterality Status Provider Name and Address Organization Details Recorded Time 10/29/19 25 Hysteroscopy completed SREE PRATT MD [address], [place], [address], [facility] 10/28/2024 11:55:31 10/29/19 25 IUD Insertion completed SREE PRATT MD [address], [place], [address], [facility] 10/28/2024 11:55:49 09/18/19 25 Date of Last Pap Smear completed Josseline Valle [facility] 10/09/2024 14:12:59 09/24/19 24 IUD Insertion completed PIEDAD Morales [address], [place], [address], [facility] 09/24/2023 15:20:23 10/18/19 22 IUD Removal completed PIEDAD Rogers- [address], [place], [address], [facility] 10/17/2021 16:08:50 06/12/19 22 Colposcopy completed [facility] 02/14/2022 19:38:43 06/12/19 22 Colposcopy completed [facility] 02/14/2022 20:04:50 07/07/19 21 Laparoscopy completed [facility] 02/14/2022 20:04:59 06/12/19 21 Endometrial Biopsy completed [facility] 02/14/2022 20:05:06 02/11/18 96 Myringotomy laser-assist completed [facility] 02/14/2022 20:05:35 Imaging Results None [...] Available Not Available Not Available amoxicillin 875 mg-keriu m clavulanate 125 mg tablet 10/17 completed [...] Updated DateTime 10/28/2024 160.02 cm 25.7 kg/m2 45171.89 g 123/82 mm[Hg] Mona Grant [facility] 10/28/2024 09:55:13 Social History Question Answer Notes LastModified by Organizat ion Details LastModified Time Tobacco Smoking Status Former Smoker Amrita Brooksmoises boo, [facility] 09/19/2022 10:27:01 Do You Have An Advance Directive? No Information not available 03/19/2022 If You Are , What Was Your Level Of Alcohol Consumption Prior To ? Occasional [email or web address] Information not available 09/19/2022 How Many Years [...] COVID-19 While That Case Was Ill? No [email or web address] Information not available 02/14/2022 In The 14 Days Before Symptom Onset, Have You Had Close Contact With A Person Who Is Under Investigation For COVID-19 While That Person Was Ill? No Information not available 02/14/2022 Have You Been To An Area Known To Be High Risk For COVID-19? No [email or web address] Information not available 02/14/2022 Are You Deaf Or Do You Have Serious Difficulty Hearing? No Information not available 10/17/2021 What Type Of Diet Are You Following? REGULAR Information not available 10/17/2021 What Is The Highest Grade Or Level Of School You Have Completed Or The Highest Degree You Have Received? [id number] [email or web address] Information not available 02/14/2022 Are There Any Guns Present In Your Home? Yes [email or web address] Information not available 02/14/2022 Do You Use [...] 03/19/2022 Do You Use Sunscreen Routinely? Yes [email or web address] Information not available 11/27/2024 How Many Years Have You Smoked Tobacco? 12 Information not available 03/19/2022 Have You Used IV Drugs? No Information not available 03/19/2022 Do You Have Difficulty Walking Or Climbing Stairs? No Information not available 09/19/2022 Sex: Female Functional Status Question Answer Note LastModified by Organizat ion Details LastModified Time Do you use any illicit or recreational drugs? No Information not available 10/17/2021 Do you or have you ever used any other forms of tobacco or nicotine? Yes [email or web address] Information not available 09/19/2022 What is your level of alcohol consumption? None Information not available 03/19/2022 Are you able to walk independently without assistance or assistive devices? [email or web address] Information not available 10/17/2021 Are you able to care for yourself independently? 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 No [email or web address] Information not available 09/19/2022 Do you or have you ever used e-cigarettes or vape? Current user of electronic cigarettes [email or web address] Information not available 09/19/2022 What is your exercise level? Occasional Information not available 10/17/2021 Mental Status Question Answer Note LastModified by Organization D etails LastModified Time Do you feel stressed (tense, restless, nervous, or anxious, or unable to sleep at night)? [id number] [email or web address] Information not available 02/14/2022 Family History Relationship Description Onset Age of this Age Resolved Age Notes LastModified by Organization Details LastModified Time Paternal Grandfather Hypertensive disorder [email or web address] Not available 02/14 20:02:14 Paternal Grandfather Diabetes mellitus [email or web address] Not available 02/14 20:02:22 Maternal Aunt Tachycardia [email or web address] Not available 11/27/2024 15:44:17 Maternal Aunt Leukemia [email or web address] Not av ailable 11/27/2024 15:44:17 Maternal Grandfather Anemia [email or web address] Not available 05/2022 20:03:04 Maternal Grandfather Malignant neoplasm of urinary bladder Not available 2024 15:44:17 Maternal Grandfather Malignant neoplasm of prostate [email or web address] Not available 2024 15:44:17 Maternal Grandmother Malignant melanoma [email or web address] Not available 2024 15:44:17 Medical History Condition Response Allergies (Food, seasonal, environmental ) N Other N Blood Transfusion N Drug/Latex Allergies/Reactions N Breast Cancer N Dermatologic Disorders N Lung Disease N Defects or Inherited [...] ICD10 Code Diagnosis IMO Codes Diagnosis Note [id number] SREE PRATT MD [facility] [address] [address] 10/09/2024 13:47:04 10/09/2024 14:58:56 Malposition of intrauterine contraceptive device [id number] T83.32XD [id number] - IUD malpositio hussain, strings not visualized - recommend hysterosco pic IUD removal and reinsertio n of Mirena IUD- discussed risks of surgery, including bleeding, infection, and injury to adjacent structures - patient would like to proceed with hysterosco py and IUD removal/re insertion Cervical atypism 8954529 8 R87.610 [id number] - ASCUS neg HPV this year, MILN/+HPV last year- discussed option of expectant management with pap in 1 year vs colposcopy at time of hysterosco py- also recommend gardasil vaccine and smoking cessation- patient would like expectant management at this time [id number] SREE PRATT MD [facility] [address] [address] 10/28/2024 09:42:12 10/28/2024 12:39:31 Contraception status 106317468 Z30.941 0639321 - Mirena IUD removed and reinserted without issue- due for removal 10/2032- rtc 1 month for string check Health Concerns Section Related Observation LastModified by Organization Detai ls LastModified Time None Recorded Concern Status LastModified by Organization Details LastModified Time None Recorded Payers Encounter Date Sequence Insurance Name Policy Number Policy Mendoza Covered Member ID Mendoza Member ID Guarantor Name 10/28/2024 [address] [facility] ([facility]) [id number] Jovita Gamboa [id number] Jovita Gamboa Notes Date Note Type Note Provider Name and Address Organization Details Recorded Time 10/28/2024 text/html ROS as noted in the HPI Patient presents for hysteroscopic IUD removal and reinsertion due to malpositioned IUD. ARUN Tello - [facility] 10/28/2024 14:23:29 OBGyn Episode No OBEpisode recorded.
--- OUTSIDE RECORDS SUMMARY | 2025-01-19 02:24 | XMS_ITS | Encounter Summary ---
Author Organization [facility] Address [address] [place] [address] Care Team Providers Care Loss Mitigation Specialist Name Role Phone Ally Barajas PA-C Primary Care Provider [phone] Ramsey Mccann FIELD TAX AUDITOR Unavailable [phone] Encounter Details Date Type Department Care Team (Late st Contact Info) Description 09/19/2021 [facility] [address] [place] [address] Ally Barajas PA-C [address] [place] [address] STD Social History Tobacco Use Types Packs/Day [...] Master's degree (e.g., MA, MS, Monster, MEd, MILK DELIVERY DRIVER, RODRIGO) 01/03/2021 Comments No Sex and Gender Information Value Date Recorded Sex Assigned at Female 03/20/2024 1:48 PM MIDDLE SCHOOL MATH TEACHER Legal Sex Female 8:31 PM CDT Gender [...] documented as of this encounter Care Teams Loss Mitigation Specialist Relationship Specialty Start Date End Date Ally Barajas, DELORISC [address] [facility] [address] [place] [address] PCP - General PHYSICIAN COAL CAGER 05/06/19 Ramsey Mccann, FIELD TAX AUDITOR [address] [facility] [address] [place] [address] Nurse Practitioner Women's Health 08/30/21 documented as of this encounter
--- OUTSIDE RECORDS SUMMARY | 2025-01-19 02:24 | XMS_ITS | Encounter Summary ---
Author Organization [facility] Address [address] [place] [address] Care Team Providers Care Environmental Educator Name Role Phone Ally Barajas PA-C Primary Care Provider [phone]- [phone] Ramsey Mccann ARCHITECTURE INTERNSHIP Unavailable [phone] Encounter Details Date Type Department Care Team (Late st Contact Info) Description 05/15/2023 [employer] [facility] [address] [place] [phone] [facility] Schedule Appointment - Annual Physical Social [...] Master's degree (e.g., MA, MS, Monster, MEd, SUPERVISOR GARAGE, RODRIGO) 01/03/2021 Comments Yes Sex and Gender Information Value Date Recorded Sex Assigned at Female 03/20/2024 1:48 PM BUSINESS ANALYTICS INTERN Legal Sex Female 8:31 PM CDT Gender [...] documented as of this encounter Care Teams Environmental Educator Relationship Specialty Start Date End Date Ally Barajas PA-C [address] [place] [address] PCP - General PHYSICIAN CRUSHER TENDER 05/06/19 Ramsey Mccann, ARCHITECTURE INTERNSHIP [address] [place] [address] Nurse Practitioner Women's Health 08/30/21 documented as of this encounter
--- OUTSIDE RECORDS SUMMARY | 2025-01-19 02:25 | XMS_ITS | Encounter Summary ---
Author Organization [facility] Address [address] [place] [address] Care Team Providers Care Digital Advertising Specialist Name Role Phone Ally Barajas PA-C Primary Care Provider [phone]- [phone] Ramsey Mccann MILIEU THERAPIST Unavailable [phone] Encounter Details Date Type Department Care Team (Late st Contact Info) Description 09/01/2021 [employer] [address] [place] [id number] Ally Barajas PA-C [address] [place] [address] Question regarding CULTURE URINE Social History Tobacco [...] Master's degree (e.g., MA, MS, Monster, MEd, TURNTABLE ENGINEER, RODRIGO) 01/03/2021 Comments No Sex and Gender Information Value Date Recorded Sex Assigned at Female 03/20/2024 1:48 PM MAGAZINE SUPERVISOR Legal Sex Female 8:31 PM CDT [...] documented as of this encounter Care Teams Digital Advertising Specialist Relationship Specialty Start Date End Date Ally Barajas PA-C [address] [facility] [address] [place] [address] PCP - General PHYSICIAN FLIGHT PARAMEDIC 05/06/19 Ramsey Mccann, MILIEU THERAPIST [address] [facility] [address] [place] [address] Nurse Practitioner Women's Health 08/30/21 documented as of this encounter
--- OUTSIDE RECORDS SUMMARY | 2025-01-19 02:25 | XMS_ITS | Encounter Summary ---
Author Organization [facility] Address [address] [place] [address] Care Team Providers Care Organic Gardening Teacher Name Role Phone Ally Barajas PA-C Primary Care Provider [phone]- [phone] Ramsey Mccann ANIMAL REHABILITATOR Unavailable [phone] Encounter Details Date Type Department Care Team (Late st Contact Info) Description 08/28/2021 [facility] [address] [place] [phone] Ally Barajas PA-C [address] [place] [address] Injection Shot Reaction Social History Tobacco Use [...] Master's degree (e.g., MA, MS, Monster, MEd, FURNITURE SALES ASSOCIATE, RODRIGO) 01/03/2021 Comments No Sex and Gender Information Value Date Recorded Sex Assigned at Female 03/20/2024 1:48 PM AUDIT SENIOR ASSOCIATE Legal Sex Female 8:31 PM CDT Gender [...] of this encounter Progress Notes * Marielos eRid RN - 08/28/2021 10:40 AM CDT Appt [...] documented as of this encounter Care Teams Organic Gardening Teacher Relationship Specialty Start Date End Date Ally Barajas PA-C [address] [place] [address] PCP - General PHYSICIAN SENIOR RECRUITER 05/06/19 Ramsey Mccann, ANIMAL REHABILITATOR [address] [place] [address] Nurse Practitioner Women's Health 08/30/21 documented as of this encounter
--- OUTSIDE RECORDS SUMMARY | 2025-01-19 02:25 | XMS_ITS | Encounter Summary ---
Author Organization [facility] Address [address] [place] [address] Care Team Providers Care Hoop Coiling Machine Operator Name Role Phone Ally Barajas PA-C Primary Care Provider [phone]- [phone] Ramsey Mccann WIRELESS FIELD TECHNICIAN Unavailable [phone] Encounter Details Date Type Department Care Team (Late st Contact Info) Description 09/06/2021 [employer] [address] [place] [address] Ally Barajas PA-C [address] [place] [address] Question regarding AI SCRN W RFX/TITER/PATTERN/CA SCADE [...] Master's degree (e.g., MA, MS, Monster, MEd, TRANSFORMATION COACH, RODRIGO) 01/03/2021 Comments No Sex and Gender Information Value Date Recorded Sex Assigned at Female 03/20/2024 1:48 PM 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
[2025-01-19 09:09] VITALS: BP 127/63; PULSE 84; RESP 18; TEMP 36.1; O2SAT 100; BMI 25.3
[2025-01-19 09:13] LABS: BEDSIDEPREGUCG Negative (Negative)
[2025-01-19] MEDS: LACTATED RINGERS 1,000 ML 30 ML IV CONT (09:18)
[2025-01-19] MEDS: LACTATED RINGERS 1,000 ML 150 ML IV CONT (09:20)
--- NOTE | 2025-01-19 09:32 | P.PNAN_ITS ---
Anes - Initial Pre Proc Eval Procedure: Operation Date: 01/19/25 10:30 Proposed Procedures p Diagnostic Colonoscopy - Michael Durham MD Date/Time: 01/19/25 09:32 Surgeon: Michael Durham MD Pre Op Diagnosis: Diarrhea, unspecified Patient Data Age: 34 Gender: F Height: 1.57 m Weight: 62.8 kg Last Vital Signs Temp 36.1 C L 01/19/25 09:09 Pulse 84 01/19/25 09:09 Resp 18 01/19/25 09:09 BP 127/63 01/19/25 09:09 Pulse Ox 100 01/19/25 09:09 O2 Del Method Room Air 01/19/25 09:09 Allergies Allergy/AdvReac Type Severity Reaction Status Date / Time No Known Allergies Allergy Verified 01/19/25 09:07 Home Medications ?Medication ?Instructions ?Recorded ?Confirmed ?Type vit no.95-ferrous 1 tablet PO DAILY 01/19/25 01/19/25 History fumarate 28 mg-folic acid 800 mcg tablet () Laboratory Tests 01/19/25 09:09 POC Urine HCG, Qual Negative (Negative) Patient hx anesthesia problems: none Family hx anesthesia problems: none Results Review: All pre-operative results and documents have been reviewed as part of the pre- operative evaluation. COUNTS INCLUDE 234 BEDS AT THE [facility] Past Medical History Medical History Status post hysteroscopy IUD (intrauterine device) in place Social History Social History Smoking status: Former smoker Tobacco type: cigarettes Additional smoking assessment comments: contains nicotine Substance use type: does not use Living arrangements: with family Spiritual care concerns: No Anes - Eval Final PreProcedure Day of Procedure 01/19/25 09:32 Patient weight: normal Heart: regular rate and rhythm Lungs: clear to auscultation Airway: Mallampati scale class II Neurological: alert and oriented Last oral intake: >/= 8 hours ASA classification: II Emergent: no Anesthetic plan: proceed Anesthesia type and monitoring: general GIVS and standard monitoring Results Review: All pre-operative results and documents have been reviewed as part of the pre- operative evaluation. Informed Consent: The patient's anesthetic plan and its attendant risks and benefits were discussed with the patient/family/POA. Questions were solicited and answers provided to the satisfaction of the patient/family/POA.
--- NOTE | 2025-01-19 09:56 | WPDHPUPDATE1 ---
History and Physical Update Update Date/Time: 01/19/25 09:56 History and Physical has been reviewed, including an updated exam of the patient. There are NO changes in the patient's condition. Risks, benefits, and alternatives have been discussed and questions answered. Patient agrees to proceed with procedure.
--- NOTE | 2025-01-19 10:11 | S_PTH ---
PATIENT: Jovita Gamboa LOC: [facility]#:[id number] AGE/SX: 34/F ROOM: RE01/19/[address]: Michael Durham MD : 1990 BED: DIS: 01/19/2025 SPEC #: [id number] RECD: 01/19/25 11:24 STATUS: KEILY REDonaldo #: [id number] MICKEY: 01/19/25 10:[address]: Michael Durham DEPT: [facility] Surgical RECD BY: Alondra Perez MLT, ([facility]) ENTERED: 01/19/25 11:25 SP TYPE: Surgical OTHR DR: Ally Barajas, PA Tissues: A - Colon Polypectomy Procedures: Hematoxylin and Eosin Stain Gross and Microscopic Level 4
[2025-01-19 10:14] VITALS: BP 109/59; PULSE 57; RESP 19; O2SAT 100
[2025-01-19 10:24] VITALS: BP 115/62; PULSE 64; RESP 16; O2SAT 100
[2025-01-19 10:34] VITALS: BP 110/67; PULSE 61; RESP 16; O2SAT 100
== END 2025-01-19 10:42 | disposition home or self-care (01) ==
PROVIDERS: Anesthesiology; PCP Physician Assistant; Referring Provider Nurse Practitioner Family; Visit Provider Internal Medicine Gastroenterology
PROC: 0DJD8ZZ Inspection of Lower Intestinal Tract, Via Natural or Artificial Opening Endoscopic (ICD-10-PCS; CPT 45378; principal; 2025-01-19 10:30)
DX: D64.9 Anemia, unspecified (principal); F41.9 Anxiety disorder, unspecified; R51.9 Headache, unspecified; F32.A Depression, unspecified; N80.9 Endometriosis, unspecified; Z97.5 Presence of (intrauterine) contraceptive device; Z98.890 Other specified postprocedural states; Z87.891 Personal history of nicotine dependence
CPT/HCPCS: 45380; 88305; J2003; J2704; J7120